=== PATIENT | male | born 1935 | race Asian ===

== ENCOUNTER 2024-06-01 08:20 | Emergency (ER) | payer MEDICARE, MEDICAID, SELFPAY ==
[2024-06-01] VITALS (7 sets, daily range): BP systolic 128–179; BP diastolic 77–86; PULSE 69–87; RESP 16–19; TEMP 36.5–37; O2SAT 98–100; BMI 24.7
--- NOTE | 2024-06-01 | XR_ITS ---
MRI abdomen, without contrast. MRCP Date and time of exam: June 01, 2024 1310 hours INDICATIONS: Upper abdominal pain this week, enlarged common bile duct on CT abdomen pelvis 03/15/2024 Technique: Multiple axial and coronal images of the abdomen have been obtained with the Siemens 1.5T MRI scanner. Images obtained included T1 weighted transverse images, T2-weighted transverse images, T2-weighted transverse images fat-suppressed, T2 weighted haste fat suppressed transverse images, T1 weighted images, in and out of phase images, T2-weighted coronal images, breath hold, T2 weighted haze coronal images as well as T2 weighted coronal thick slab images, MRCP. Findings: Mild intrahepatic biliary tract dilatation Absent gallbladder Abnormal enlargement common hepatic common bile duct up to 9 mm Abrupt truncation of the distal common bile duct Atrophic pancreas Spleen is not enlarged No ascites Aorta normal size IMPRESSION: Abnormal extra hepatic biliary tract dilatation, with abrupt termination of the distal common bile duct, differential would include malignant stricture the distal common bile duct, recommend ERCP follow-up
--- NOTE | 2024-06-01 08:26 | EKG_ITS ---
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
--- NOTE | 2024-06-01 08:37 | PD.EDRME ---
Rapid Medical Screening Exam RME Arrival date/time: 06/01/24 08:20 88-year-old male presents to the emergency department complains of upper abdominal pain Chief Complaint: Abdominal Pain Time Seen by Provider: 06/01/24 08:23 Vital signs: Vital Signs Temperature 98.6 F 06/01/24 08:22 Pulse Rate 87 06/01/24 08:22 Respiratory Rate 19 06/01/24 08:22 Blood Pressure 137/80 H 06/01/24 08:22 Pulse Oximetry (%) 98 06/01/24 08:22 Oxygen Delivery Method Room Air 06/01/24 08:22
[2024-06-01] MEDS: FAMOTIDINE 20 MG TABLET 40 MG PO (09:25)
[2024-06-01 09:31] LABS: Collection Type, Urine Clean Catch
[2024-06-01 09:34] LABS: Basophils % (Auto) 0 % (0-2.5); Eosinophils # (Auto) 0.3 Thou/mm3 (0.0-0.5); Eosinophils % (Auto) 4 % (0-10); Hematocrit 34.7 % (41.0-53.0); Hemoglobin 11.4 g/dL (13.5-16.0); Immature Granulocytes % (Auto) 0 % (0-0); Immature Granulocytes Auto 0.01 Thou/mm3 (0.00-0.00); Lymphocytes # (Auto) 2.1 Thou/mm3 (1.0-4.8); Lymphocytes % (Auto) 30 % (10-50); Mean Corpuscular HGB Conc 32.9 g/dl (31.0-37.0); Mean Corpuscular Volume 85 fL (80-100); Monocytes # (Auto) 0.5 Thou/mm3 (0.0-0.8); Monocytes % (Auto) 7 % (0-12); Neutrophils # (Auto) 4.1 Thou/mm3 (1.8-7.7); Neutrophils % (Auto) 58 % (37-80); Nucleated Red Blood Cell % 0 /100 WBC (0); Platelet Count 344 Thou/mm3 (140-440); RDW Standard Deviation 52.6 fL (35.1-43.9); Red Blood Count 4.07 Miln/mm3 (4.50-5.90)
[2024-06-01] MEDS: LIDOCAINE VISCOUS 2% 15 ML UDC PO (09:37)
[2024-06-01] MEDS: MG HYD/AL HYD/SIME (Maalox Reg) SUSP 30 ML UDC PO (09:37)
[2024-06-01 09:44] LABS: Bilirubin,Urine Negative (Negative); Blood,Urine Negative (Negative); Clarity,Urine Clear (Clear/Hazy); Color,Urine Lt-Yellow (Lt Yel-Yel); Culture Indicated,Urine Not Indicated; Glucose, Urine 4+ (Negative); Ketones,Urine Negative (Negative); Leukocyte Esterase,Urine Negative (Negative); Nitrite,Urine Negative (Negative); Protein,Urine Negative (Neg - Trace); RBC,Urine 1 /hpf (0-3); Specific Gravity,Urine 1.022 (1.001-1.035); Squamous Epithelial Cell,Urine < 1 /hpf (0-5); Urobilinogen,Urine Negative mg/dL (0.0-1.0); WBC,Urine < 1 /hpf (0-5)
[2024-06-01 10:07] LABS: Alanine Aminotransferase 10 U/L (10-49); Albumin, Serum 4.2 gm/dL (3.4-4.8); Albumin/Globulin Ratio 1.3 (1.2-2.2); Alkaline Phosphatase 103 U/L (46-116); Anion Gap 7 (7-16); Aspartate Amino Transferase 15 U/L (0-34); BUN/Creatinine Ratio 8 Ratio (12-20); Bilirubin,Total 0.4 mg/dL (0.3-1.2); Blood Urea Nitrogen 10 mg/dL (9-23); Calcium 9.8 mg/dL (8.3-10.6); Calcium (Corrected) 9.8 mg/dL (8.5-10.1); Carbon Dioxide 26.9 mMol/L (20.0-31.0); Chloride 105 mMol/L (98-107); Creatinine (Component) 1.3 mg/dL (0.6-1.3); Estimated Creatinine Clearance 28.8 mL/min (>60); Globulin 3.3 gm/dL (2.3-3.5); Glucose 169 mg/dL (74-106); Lipase 23 U/L (12-53); Osmolality,Calculated 280 (275-295); Sodium 139 mMol/L (136-145); Total Protein 7.5 gm/dL (5.7-8.2); Troponin I < 0.020 ng/mL (0.0-0.045); eGFR 54 See Note
--- NOTE | 2024-06-01 14:41 | EDNOTE_ITS ---
ED Abdominal Pain RME/HPI General Chief Complaint: Abdominal Pain Stated complaint: ABD PAIN, FEELS LIKE HEART IS BEATING WIERD PER PT Time seen by provider: 06/01/24 08:23 Arrival date/time: 06/01/24 08:20 Limitations: no limitations RME / HPI RME / HPI narrative: 06/01/24 08:20 88-year-old male presents to the emergency department complains of upper abdominal pain DR. BERNARD MAIN ED EVALUATION: 88 yaer old male with past medical history significant for hypertension and chronic epigastric pain who presents to the emergency department with recurrence of his epigastric pain. Pain is described as a hard, burning sensation that moves up his mid back, does not include his chest. pain has been present, intermittent for the last 1 to 2 years. It occurs in flares up at least once a week and often times is after eating. He has had several visits to the emergency department without a definitive diagnosis. He has had 2 EGDs where last EGD possibly in July of this year was suggestive of a bacterial infection of which he finished 7 days of antibiotics. After these antibiotics he did not have pain for about 2 to 3 weeks, and then recurred again. He denies nausea or vomiting. He denies diarrhea. He denies chest pain or shortness of breath. He feels like his causes him Related Data Home Medications ?Medication ?Instructions ?Recorded ?Confirmed fentanyl 75 mcg/hr transdermal 1 patch TOP Q72H PAIN #0 patches 11/19/15 11/30/22 patch (Duragesic) cetirizine 10 mg tablet 10 mg PO QDAY 03/29/22 11/30/22 dapagliflozin propanediol 5 mg 5 mg PO QDAY 03/29/22 11/30/22 tablet (Farxiga) acetaminophen 500 mg tablet 500 mg PO Q6HR PRN Pain 11/26/22 11/30/22 amlodipine 2.5 mg tablet 2.5 mg PO QAM 11/26/22 11/30/22 benzonatate 200 mg capsule 200 mg PO TID PRN Cough 11/26/22 11/30/22 omeprazole 40 mg capsule,delayed 40 mg PO QDAY 11/30/22 11/30/22 release Previous Rx's ?Medication ?Instructions ?Recorded sucralfate 100 mg/mL oral 5 ml PO QID #414 mL 03/15/24 suspension (Carafate) Allergies Allergy/AdvReac Type Severity Reaction Status Date / Time pregabalin [From Lyrica] Allergy Severe Hives Verified 06/01/24 08:21 shellfish derived Allergy Severe Hives Verified 06/01/24 08:21 Review of Systems Review of Systems Systems Reviewed: All systems reviewed, normal except as documented Narrative Review of Systems: GEN: No fever, no chills, no weight loss EYES: No discharge, no visual changes, no pain HEENT: No ear pain, no congestion, no sore throat PULM: No shortness of breath, no cough, no congestion CV: No chest pain, no dyspnea on exertion, no palpitations GI: No nausea, no vomiting, no diarrhea, + abdominal pain, no constipation : No frequency, no urgency and no dysuria MUSC/SKEL: No joint pain, no back pain SKIN: No rash PSYCH: No hallucinations, no depression HEME/LYMPH: No easy bleeding or bruising tendencies NEURO: No weakness, no headache Past Medical History Past Medical History CARDIAC: Positive Hypertension GASTROINTESTINAL: Positive Gastrointestinal Disorders, Gall Bladder Disease and Gastroesophageal Reflux Disease MUSCULOSKELETAL: Positive Musculoskeletal Disorders and Arthritis ENT: Positive Cataracts ENDOCRINE: Positive Endocrine Disorders and Diabetes Mellitus Type 2 Social History SMOKING STATUS: Never smoker SUBSTANCE USE: does not use ED Exam General Limitations: Present no limitations General appearance: Present alert and other (Moderate distress, nontoxic) Head Head exam: Present atraumatic, normocephalic and normal inspection Eye Eye exam: Present normal appearance, PERRL and EOMI ENT ENT exam: Present normal exam, normal oropharynx and mucous membranes moist Neck Neck exam: Present normal inspection, full ROM and trachea midline Chest Chest inspection: Present normal inspection and symmetric chest wall rise Respiratory Respiratory exam: Present normal lung sounds bilaterally Cardiovascular Cardiovascular exam: Present regular rate, normal rhythm and normal heart sounds Abdominal Exam Abdominal exam: Present soft and normal bowel sounds Abdominal tenderness: Present epigastrium (Moderate to severe, no rebound or guarding) Extremities Exam Extremities exam: Present normal inspection and full ROM Back Exam Back exam: Present normal inspection and full ROM Neurological Exam Neurological exam: Present alert, oriented X3 and CN II-XII intact Psychiatric Psychiatric exam: Present normal affect and normal mood Skin Skin exam: Present warm, dry, intact and normal color Course Quality Measures none Orders Category Date Time Status EKG (ED ONLY) *Do not use* NOW Care 06/01/24 08:26 Completed MRI Screening NOW Care 06/01/24 09:28 Completed Referral - Mathematical Physicist Stat Cons 06/01/24 15:12 Active EKG (ED Only) Stat Exams 06/01/24 08:26 Draft MR MRCP Stat Exams 06/01/24 Completed CBC Stat Lab 06/01/24 09:26 Completed Comprehensive Metabolic Panel Stat Lab 06/01/24 09:26 Completed Lipase Stat Lab 06/01/24 09:26 Completed Troponin I Stat Lab 06/01/24 09:26 Completed UA, C/S IF [Urinalysis, C/S if Indicated] Stat Lab 06/01/24 08:50 Completed Acetaminophen Tab [Tylenol Tab] Med 06/01/24 14:57 Discontinued 650 mg PO X1 ONE Famotidine [Pepcid] Med 06/01/24 08:37 Discontinued 40 mg PO X1 ONE Lidocaine 2% Viscous [Xylocaine 2% Viscous] Med 06/01/24 09:28 Discontinued 15 ml PO X1 ONE mg Hyd/Al Hyd/Rashad Susp [Maalox Susp] Med 06/01/24 09:28 Discontinued 30 ml PO X1 ONE Reevaluation(s) Reevaluation #1: I have reviewed the findings at length with the patient translated through his daughter with the urging of his daughter as well. We reviewed the findings, the treatment plan diagnostic plan, including biopsy. He would like to discuss with his primary provider, Leanne brumfield, and understands the risks, including continued pain and . he is assigning out AMA. This patient is choosing to leave against medical advice. I have personally explained to the patient that choosing to do so may result in permanent bodily harm or . I discussed a great length that without further evaluation and monitoring there may be unforeseen circumstances and deterioration causing permanent bodily harm or as a result of their choice. The patient is alert, oriented and competent at this time. The patient states that they are aware of the serious risks as explained, but they continue to wish to leave against medical advice. In light of their decision to leave AMA, follow-up has been arranged and they are aware of the importance of following up as instructed. They have been advised that they should return to the ED immediately if they change their mind at any time, or if their condition begins to change or worsen. Time: 16:25 Vital Signs Vital signs: Vital Signs Temperature 98.6 F 06/01/24 08:22 Pulse Rate 87 06/01/24 08:22 Respiratory Rate 19 06/01/24 08:22 Blood Pressure 137/80 H 06/01/24 08:22 Pulse Oximetry (%) 98 06/01/24 08:22 Oxygen Delivery Method Room Air 06/01/24 08:22 SpO2 98% on room air, patient is not hypoxic Abdominal Pain MDM MDM Narrative [facility] Narrative:: Mr. Starkey is a quite uncomfortable appearing gentleman with recurrence of his chronic epigastric pain. He has been to the emergency department several times for this complaints, visits with his primary care physician, and EGDs twice without a definitive diagnosis. Exam is without significant clinical toxicity but is notable for discomfort and moderate to severe pain with palpation of his epigastrium. Due to the chronic recurrent nature and several visits to emergency department I did review the electronic medical record to guide workup during this emergency department. Laboratory testing including lipase was sent via the RME process which was overall unremarkable and significant for a normal lipase and normal liver enzymes. He is status post laparoscopic cholecystectomy. He has had approximately 5 abdominal CTs in the last 2 years where he has been having this pain. Last 2 abdominal CTs were December and March of this year which is essentially unremarkable for acute pathology but does have an interesting curiosity, his common bile duct is notable on both of them therefore possibly dilated. On the last CT in March his CBD on CT is measured at 10 cm. Although the CBD can be enlarged in the later decades of life, this is now beyond what would be expected for his age. However it is important to note that the CT is not precise in quantifying the CBD. Through both of these encounters where the CBD was possibly enlarged liver enzymes and lipase were normal on those visits as well. Overall the trend appears to be gradually growing CBD diameter of unknown reason, and on my exam he has significant epigastric pain which could connect to pathology in this area. At this point I felt to be prudent hop back onto the [id number] of ED CT scans and instead to advance his workup to better and more precisely address the potential of a dilated CBD. Additionally he has been addressing this with his primary care doctor and several specialist without definitive diagnosis. Therefore MRCP was ordered here in the emergency department which did come back positive for a very concerning stricture at his CBD and dilation of the ducts upstream. Most concerning would be a malignancy or a cancer and next steps would be ERCP for visualization and possible biopsy. I reviewed all the results from today and previous CTs with the patient and his daughter as the basis for next steps in diagnostics and possible treatment. This would include transfer to a higher level of care with the capacity for ERCP. however despite outlining this process, explaining things to his daughter for clear translation, he transparently admits that he is appreciative and does want a better explanation as he has been suffering from this for the last 1 to 2 years, however now with that there is an identifiable issue for further testing, this is creating anxiety where he would prefer to discuss the results with his primary care provider, Leanne hollingsworth before making any decisions on the ERCP. I did outline the ERCP in relation to his EGDs in the past however he still admits that he is quite fearful, he understands why should be done, but would like to sign out AMA so we can discuss this with his primary care provider. I have advised him that if he changes his mind he can return to the emergency department that we can initiate transfer at that time I have also explained this to his daughter. Patient otherwise has stable vital signs, is clinically nontoxic, he does continue to have epigastric pain, however is signing out AMA. I, Larisa Morgan, am scribing for and in the presence of Dr. Bernard. Patient data External records reviewed:: [facility] previous records (Reviewed last ED visit dated 03/15/24, discharged with the following: Epigastric pain.) Clinical information provided by:: patient and family (daughter serving as spanish translator) Social determinants that could affect healthcare access:: none Patient has the following chronic illnesses:: hypertension and GERD How is presenting disease/condition affected by chronic disease/condition?: exacerbated by Evaluation data The following diagnostics were reviewed and interpreted by me:: lab results, radiology exam(s) and EKG tracing(s) Lab and/or radiology exams considered but not ordered:: none Interpretation Summary: Procedure(s): MR MRCP Accession Number(s): [id number] cc: Fred Bernard MD; Gwyn Lugo MD; Leanne Serna PA-C~ MRI abdomen, without contrast. MRCP Date and time of exam: June 01, 2024 1310 hours INDICATIONS: Upper abdominal pain this week, enlarged common bile duct on CT abdomen pelvis 03/15/2024 Technique: Multiple axial and coronal images of the abdomen have been obtained with the Siemens 1.5T MRI scanner. Images obtained included T1 weighted transverse images, T2-weighted transverse images, T2-weighted transverse images fat-suppressed, T2 weighted haste fat suppressed transverse images, T1 weighted images, in and out of phase images, T2-weighted coronal images, breath hold, T2 weighted haze coronal images as well as T2 weighted coronal thick slab images, MRCP. Findings: Mild intrahepatic biliary tract dilatation Absent gallbladder Abnormal enlargement common hepatic common bile duct up to 9 mm Abrupt truncation of the distal common bile duct Atrophic pancreas Spleen is not enlarged No ascites Aorta normal size IMPRESSION: Abnormal extra hepatic biliary tract dilatation, with abrupt termination of the distal common bile duct, differential would include malignant stricture the distal common bile duct, recommend ERCP follow-up Dictated By: Gwyn Lugo MD Medications / Prescriptions Medications or Prescriptions considered but not ordered:: none Medication administrations:: Medication Administration History Discontinued Medications Acetaminophen (Acetaminophen 325 Mg Tablet) 650 mg PO X1 ONE Stop: 06/01/24 14:58 Last Admin: 06/01/24 15:23 Dose: 650 mg Documented By: MARCIANO Al Hydrox/Mg Hydrox/Simethicone (Mg Hyd/Al Hyd/Rashad (Maalox Reg) Susp 30 Ml Udc) 30 ml PO X1 ONE Stop: 06/01/24 09:29 Last Admin: 06/01/24 09:37 Dose: 30 ml Documented By: MARCIANO Famotidine (Famotidine 20 Mg Tablet) 40 mg PO X1 ONE Stop: 06/01/24 08:38 Last Admin: 06/01/24 09:25 Dose: 40 mg Documented By: MARCIANO Lidocaine HCl (Lidocaine Viscous 2% 15 Ml Udc) 15 ml PO X1 ONE Stop: 06/01/24 09:29 Last Admin: 06/01/24 09:37 Dose: 15 ml Documented By: MACRIANO see above Consultations Consultation(s) initiated? (list below): No Diagnosis Differential diagnosis abdominal pain: abdominal pain, acute appendicitis, gastroenteritis and pancreatitis Most likely diagnosis given after review of the tests above:: As noted below. Admission Indicated Admission indicated?: not indicated Explain why admission is indicated or not indicated:: Patient is choosing to leave AMA. Admission Request Was there a request for admission?: No Disposition Plan Disposition Plan: other (specify) (AMA) Discharge Plan Plan Patient Disposition: Left Against Medical Advice Prescriptions/Referrals Prescriptions/Med Rec: No Action fentanyl [Duragesic] 1 PATCH patch 72 hour 1 patch TOP Q72H Qty: 0 cetirizine 10 mg Tablet 10 mg PO QDAY Farxiga 5 mg Tablet 5 mg PO QDAY benzonatate 200 mg capsule 200 mg PO TID MDD 3 PRN (Reason: Cough) Patient Comments: TAKE 1 CAPSULE BY MOUTH THREE TIMES A DAY NEEDED FOR COUGH amlodipine 2.5 mg tablet 2.5 mg PO QAM Patient Comments: TAKE 1 TABLET BY MOUTH EVERY DAY FOR BLOOD PRESSURE acetaminophen 500 mg tablet 500 mg PO Q6HR PRN (Reason: Pain) omeprazole 40 mg capsule,delayed release(DR/EC) 40 mg PO QDAY Patient Comments: TAKE 1 CAPSULE BY MOUTH EVERY DAY 30 MIN BEFORE MEALS FOR STOMACH sucralfate [Carafate] 100 mg/mL suspension 5 ml PO QID Qty: 414 0RF Rx Instructions: swish in mouth and swallow; use after food/drink Referrals: Leanne Serna PA-C [Primary Care Provider] - In 1 week Problem List Clinical Impression: Common bile duct (CBD) obstruction, Common bile duct (CBD) stricture Patient/Caregiver Discharge Instructions Education Materials: Abdominal Pain Additional Instructions: You have a stricture at the level of your common bile duct is concerning for possible cancer. Please follow-up with your primary care doctor for referral for special procedure called an ERCP. if you change your mind you can return to the emergency department and we can arrange for the transfer again. Print Language: Sekou
[2024-06-01] MEDS: ACETAMINOPHEN 325 MG TABLET 650 MG PO (15:23)
--- NOTE | 2024-06-01 15:53 | PC.CM ---
Addendum entered by Debbie Chung RN 06/01/24 16:19: I received a call from Dr. Rivera stating patient was going to leave AMA. Transfer request has been canceled. Original Note: [id number] I received a referral to transfer patient for ERCP. I will send a referal to [facility].
--- NOTE | 2024-06-01 16:39 | PC.NURSE ---
pt has been sleeping most of the time here. daughter at [facility].
--- NOTE | 2024-06-01 16:40 | PC.NURSE ---
PT decided that he did not want to be addmited/transfered . pt wants to see PCP tomorrow. ED MD and myself, explained to pt and family, that leaving now could lead to injury and or . Dispite this information, pt still chooses to leave AMA.
== END 2024-06-01 16:40 | disposition left against medical advice (07) ==
PROVIDERS: Nurse Practitioner Primary Care; Emergency Provider Emergency Medicine; PCP Physician Assistant
DX: K83.1 Obstruction of bile duct (principal); I45.10 Unspecified right bundle-branch block; Z53.29 Procedure and treatment not carried out because of patient's decision for other reasons; I10 Essential (primary) hypertension
CPT/HCPCS: 36415; 80053; 81001; 83690; 84484; 85025; 93005; 99284; J3490; S8037; 74181; A9270

== ENCOUNTER 2024-08-10 10:36 | Emergency (ER) | payer MEDICARE, MEDICAID, SELFPAY ==
[2024-08-10 11:03] VITALS: BP 120/68; PULSE 79; RESP 18; TEMP 36.6; O2SAT 97; BMI 24.1
--- NOTE | 2024-08-10 11:15 | PD.EDRME ---
Rapid Medical Screening Exam RME Arrival date/time: 08/10/24 10:36 88-year-old male presents emergency department today complaint of abdominal pain patient was seen in May had abnormality on MRI at that time Chief Complaint: Abdominal Pain Vital signs: Vital Signs Temperature 97.8 F 08/10/24 11:03 Pulse Rate 79 08/10/24 11:03 Respiratory Rate 18 08/10/24 11:03 Blood Pressure 120/68 08/10/24 11:03 Pulse Oximetry (%) 97 08/10/24 11:03 Oxygen Delivery Method Room Air 08/10/24 11:03
[2024-08-10 11:43] LABS: Collection Type, Urine Clean Catch
[2024-08-10 11:53] LABS: Basophils # (Auto) 0.1 Thou/mm3 (0.0-0.2); Basophils % (Auto) 1 % (0-2.5); Eosinophils # (Auto) 0.4 Thou/mm3 (0.0-0.5); Eosinophils % (Auto) 5 % (0-10); Hematocrit 40.5 % (41.0-53.0); Hemoglobin 13.2 g/dL (13.5-16.0); Immature Granulocytes % (Auto) 0 % (0-0); Immature Granulocytes Auto 0.01 Thou/mm3 (0.00-0.00); Lymphocytes # (Auto) 2.4 Thou/mm3 (1.0-4.8); Lymphocytes % (Auto) 34 % (10-50); Mean Corpuscular HGB Conc 32.6 g/dl (31.0-37.0); Mean Corpuscular Hemoglobin 28.4 pg (25.0-35.0); Mean Corpuscular Volume 87 fL (80-100); Monocytes # (Auto) 0.4 Thou/mm3 (0.0-0.8); Monocytes % (Auto) 6 % (0-12); Neutrophils # (Auto) 3.8 Thou/mm3 (1.8-7.7); Neutrophils % (Auto) 54 % (37-80); Nucleated Red Blood Cell % 0 /100 WBC (0); Platelet Count 298 Thou/mm3 (140-440); RDW Standard Deviation 52.9 fL (35.1-43.9); Red Blood Count 4.64 Miln/mm3 (4.50-5.90); White Blood Count 7.1 Thou/mm3 (3.8-10.6)
[2024-08-10 11:58] LABS: Bilirubin,Urine Negative (Negative); Blood,Urine Negative (Negative); Clarity,Urine Clear (Clear/Hazy); Color,Urine Lt-Yellow (Lt Yel-Yel); Culture Indicated,Urine Not Indicated; Glucose, Urine 4+ (Negative); Ketones,Urine Trace (Negative); Leukocyte Esterase,Urine Negative (Negative); Nitrite,Urine Negative (Negative); PH,Urine 6.5 (5.0-7.0); Protein,Urine Negative (Neg - Trace); RBC,Urine 1 /hpf (0-3); Specific Gravity,Urine 1.022 (1.001-1.035); Squamous Epithelial Cell,Urine < 1 /hpf (0-5); Urobilinogen,Urine Negative mg/dL (0.0-1.0); WBC,Urine < 1 /hpf (0-5)
[2024-08-10 12:10] LABS: Alanine Aminotransferase 11 U/L (10-49); Albumin, Serum 4.2 gm/dL (3.4-4.8); Albumin/Globulin Ratio 1.1 (1.2-2.2); Alkaline Phosphatase 103 U/L (46-116); Anion Gap 8 (7-16); Aspartate Amino Transferase 30 U/L (0-34); BUN/Creatinine Ratio 8 Ratio (12-20); Bilirubin,Total 0.4 mg/dL (0.3-1.2); Blood Urea Nitrogen 10 mg/dL (9-23); Calcium 10.2 mg/dL (8.3-10.6); Calcium (Corrected) 10.2 mg/dL (8.5-10.1); Carbon Dioxide 26.9 mMol/L (20.0-31.0); Chloride 104 mMol/L (98-107); Creatinine (Component) 1.3 mg/dL (0.6-1.3); Estimated Creatinine Clearance 30.2 mL/min (>60); Glucose 144 mg/dL (74-106); Lipase 21 U/L (12-53); Osmolality,Calculated 279 (275-295); Potassium 5.3 mMol/L (3.4-5.1); Sodium 139 mMol/L (136-145); Total Protein 8.2 gm/dL (5.7-8.2); eGFR 54 See Note
--- NOTE | 2024-08-10 12:49 | EDNOTE_ITS ---
ED General RME/HPI General Chief complaint: Abdominal Pain Stated complaint: ABD PAIN, NAUSEA Time Seen by Provider: 08/10/24 11:58 Arrival date/time: 08/10/24 10:36 CC: Chronic abdominal pain HPI ongoing for years per the daughter, the patient was seen here in May 2024, had an MRCP which recommended an ERCP secondary to an abrupt termination/stricture of the CBD. Patient at that time refused to go for an ERCP. Daughter at bedside said he is continue to have chronic abdominal pain since then. The patient was seen by Dr. Major today, and came to the ER because of the recurrent pain. The patient is awake with the persistent pain. RME / HPI RME / HPI narrative: 08/10/24 10:36 88-year-old male presents emergency department today complaint of abdominal pain patient was seen in May had abnormality on MRI at that time Related Data Home Medications ?Medication ?Instructions ?Recorded ?Confirmed fentanyl 75 mcg/hr transdermal 1 patch TOP Q72H PAIN #0 patches 11/19/15 11/30/22 patch (Duragesic) cetirizine 10 mg tablet 10 mg PO QDAY 03/29/22 11/30/22 dapagliflozin propanediol 5 mg 5 mg PO QDAY 03/29/22 11/30/22 tablet (Farxiga) acetaminophen 500 mg tablet 500 mg PO Q6HR PRN Pain 11/26/22 11/30/22 amlodipine 2.5 mg tablet 2.5 mg PO QAM 11/26/22 11/30/22 benzonatate 200 mg capsule 200 mg PO TID PRN Cough 11/26/22 11/30/22 omeprazole 40 mg capsule,delayed 40 mg PO QDAY 11/30/22 11/30/22 release Previous Rx's ?Medication ?Instructions ?Recorded sucralfate 100 mg/mL oral 5 ml PO QID #414 mL 03/15/24 suspension (Carafate) acetaminophen 500 mg tablet 500 mg PO Q6H PRN fever #20 tabs 08/10/24 (Acetaminophen Pain Relief) Allergies Allergy/AdvReac Type Severity Reaction Status Date / Time pregabalin [From Lyrica] Allergy Severe Hives Verified 06/01/24 08:21 shellfish derived Allergy Severe Hives Verified 06/01/24 08:21 Review of Systems Review of Systems Narrative Review of Systems: GEN: No fever, no chills, no weight loss EYES: No discharge, no visual changes, no pain HEENT: No ear pain, no congestion, no sore throat PULM: No shortness of breath, no cough, no congestion CV: No chest pain, no dyspnea on exertion, no palpitations GI: No nausea, no vomiting, no diarrhea, + pain, no constipation : No frequency, no urgency, no dysuria MUSC/SKEL: No joint pain, no back pain SKIN: No rash PSYCH: No hallucinations, no depression HEME/LYMPH: No easy bleeding or bruising tendencies NEURO: No weakness, no headache Past Medical History Past Medical History NEUROLOGIC: Negative Neurological Disorders or Seizures CARDIAC: Positive Hypertension; Negative Cardiac Disorders or Congestive Heart Failure RESPIRATORY: Negative Chronic Obstructive Pulmonary Disease (COPD) or Asthma GASTROINTESTINAL: Positive Gastrointestinal Disorders, Gall Bladder Disease and Gastroesophageal Reflux Disease GENITOURINARY: Negative Genitourinary Disorders or Renal Disease REPRODUCTIVE: Negative Fibroids MUSCULOSKELETAL: Positive Musculoskeletal Disorders and Arthritis ENT: Positive Cataracts ENDOCRINE: Positive Endocrine Disorders and Diabetes Mellitus Type 2; Negative Diabetes Mellitus Type 1 HEMATOLOGIC: Negative Blood Disorders or Sickle Cell Disease OTHER HISTORY: Negative Autoimmune Disease, Blood Transfusions, Blood Transfusion Reaction, Anesthesia Reactions, Clostridium Difficile or Cancer Family History FAMILY HISTORY: Negative Family Respiratory Disorders, Family Cardiac Disorders or Family Gastrointestinal Problems Social History SMOKING STATUS: Never smoker SUBSTANCE USE: does not use ED Exam Narrative Physical exam: [General: Thin, cachectic, in mild discomfort but not in any acute distress Head normocephalic HEENT: Within acceptable limits Neck is supple nontender Chest equal chest rise nontender to palpation Respiratory: Clear to auscultation no wheezes crackles or rubs CV: Rate rhythm is regular no murmurs rubs or clicks Abdomen soft flat with periumbilical or epigastric pain. Not reproducible with palpation. Back: No CVA tenderness no spinous process tenderness from cervical spine thoracic and lumbar spine Skin: Intact no petechiae rash induration ulceration or crepitus Extremities: Moving all extremity against resistance cap refill less than 2 seconds neurosensory intact Neuro: Awake alert oriented x2, person and place, Glascow coma 15 no focal deficits] Course Quality Measures none Orders Category Date Time Status CBC Stat Lab 08/10/24 11:19 Completed Comprehensive Metabolic Panel Stat Lab 08/10/24 11:19 Completed Lipase Stat Lab 08/10/24 11:19 Completed UA, C/S IF [Urinalysis, C/S if Indicated] Stat Lab 08/10/24 11:34 Completed oxyCODONE/APAP 5/325 [Percocet 5/325] Med 08/10/24 12:45 Discontinued 1 tab PO X1 ONE Vital Signs Vital signs: Vital Signs Temperature 97.8 F 08/10/24 11:03 Pulse Rate 79 08/10/24 11:03 Respiratory Rate 18 08/10/24 11:03 Blood Pressure 120/68 08/10/24 11:03 Pulse Oximetry (%) 97 08/10/24 11:03 Oxygen Delivery Method Room Air 08/10/24 11:03 [facility] Patient data External records reviewed:: [facility] previous records Clinical information provided by:: patient and family Social determinants that could affect healthcare access:: none Patient has the following chronic illnesses:: Chronic abdominal pain How is presenting disease/condition affected by chronic disease/condition?: e xacerbated by Evaluation data The following diagnostics were reviewed and interpreted by me:: lab results and radiology exam(s) Lab and/or radiology exams considered but not ordered:: CBC shows no leukocytosis there is a stable anemia no thrombocytopenia CMP shows sodium 139 potassium 5.3 chloride of 104 CO2 of 26.9 BUN of 10, creatinine 1.3 glucose of 144 T. bili of 0.4 AST 30 ALT of 11 alk phos of 103 these are unchanged from the last results of May 2024. Interpretation Summary: Laboratory results are unremarkable, ERCP from May show abrupt termination of the hepatobiliary tract. At this time the patient is afebrile nontoxic- appearing not in any acute distress the patient can follow-up outpatient with Dr. Major for consideration of an outpatient ERCP. Family is in agreement with this plan. Medications Medications considered but not ordered:: None Medication administrations:: Medication Administration History Discontinued Medications Oxycodone/Acetaminophen (Oxycodone/Apap 5/325 Tablet) 1 tab PO X1 ONE Stop: 08/10/24 12:46 Last Admin: 08/10/24 13:24 Dose: 1 tab Documented By: MP None Consultations Consultation(s) initiated? (list below): No Diagnosis Differential Diagnosis ED Complaint MDM: Abdominal pain, choledocholithiasis cholelithiasis cholecystitis Most likely diagnosis given after review of the tests above:: Abdominal pain Admission Indicated Admission indicated?: not indicated Explain why admission is indicated or not indicated:: Stable for outpatient follow-up Admission Request Was there a request for admission?: No Disposition Plan Disposition Plan: Discharge Discharge Attestation Discharge Attestation: The patient and all family members were given an opportunity to ask questions and understood the discharge instructions. Discharge instructions specifically effects, indications for sooner follow up or return to the emergency department, and the expected course of current diagnosis. Patient condition: Stable Medical Decision Making Differential Diagnosis Differential Diagnosis: Abdominal pain, choledocholithiasis cholelithiasis cholecystitis Lab Data 08/10/24 11:19 08/10/24 11:19 Labs: Lab Results 08/10/24 08/10/24 Range/Units 11:19 11:34 WBC 7.1 (3.8-10.6) Thou/mm3 RBC 4.64 (4.50-5.90) Miln/mm3 Hgb 13.2 L (13.5-16.0) g/dL Hct 40.5 L (41.0-53.0) % MCV 87 (80-100) fL MCH 28.4 (25.0-35.0) pg MCHC 32.6 (31.0-37.0) g/dl RDW Std Deviation 52.9 H (35.1-43.9) fL Plt Count 298 (140-440) Thou/mm3 Neut % (Auto) 54 (37-80) % Lymph % (Auto) 34 (10-50) % [place] % (Auto) 6 (0-12) % Eos % (Auto) 5 (0-10) % Baso % (Auto) 1 (0-2.5) % Neut # (Auto) 3.8 (1.8-7.7) Thou/mm3 Lymph # (Auto) 2.4 (1.0-4.8) Thou/mm3 [place] # (Auto) 0.4 (0.0-0.8) Thou/mm3 Eos # (Auto) 0.4 (0.0-0.5) Thou/mm3 Baso # (Auto) 0.1 (0.0-0.2) Thou/mm3 Immature Gran # (Auto) 0.01 H (0.00-0.00) Thou/mm3 Absolute Nucleated RBC 0.00 (0.00-0.00) Thou/mm3 Immature Gran % 0 (0-0) % Nucleated RBC % 0 (0) /100 WBC Sodium 139 (136-145) mMol/L Potassium 5.3 H (3.4-5.1) mMol/L Chloride 104 (98-107) mMol/L Carbon Dioxide 26.9 (20.0-31.0) mMol/L Anion Gap 8 (7-16) BUN 10 (9-23) mg/dL Creatinine 1.3 (0.6-1.3) mg/dL Estim Creat Clear Calc 30.2 L (>60) mL/min eGFR 54 L (60 - ) See Note BUN/Creatinine Ratio 8 L (12-20) Ratio Glucose 144 H (74-106) mg/dL Calculated Osmolality 279 (275-295) Calcium 10.2 (8.3-10.6) mg/dL Corrected Calcium 10.2 H (8.5-10.1) mg/dL Total Bilirubin 0.4 (0.3-1.2) mg/dL AST 30 (0-34) U/L ALT 11 (10-49) U/L Alkaline Phosphatase 103 (46-116) U/L Total Protein 8.2 (5.7-8.2) gm/dL Albumin 4.2 (3.4-4.8) gm/dL Globulin 4.0 H (2.3-3.5) gm/dL Albumin/Globulin Ratio 1.1 L (1.2-2.2) Lipase 21 (12-53) U/L Ur Collection Type Clean Catch Urine Color Lt-Yellow (Lt Yel-Yel) Urine Clarity Clear (Clear/Hazy) Urine pH 6.5 (5.0-7.0) Ur Specific [place]anna 1.022 (1.001-1.035) Urine Protein Negative (Neg - Trace) Urine Glucose (UA) 4+ A (Negative) Urine Ketones Trace (Negative) Urine Blood Negative (Negative) Urine Nitrite Negative (Negative) Urine Bilirubin Negative (Negative) Urine Urobilinogen (Auto) Negative (0.0-1.0) mg/dL Ur Leukocyte Esterase Negative (Negative) Urine RBC 1 (0-3) /hpf Urine WBC < 1 (0-5) /hpf Ur Squamous Epith Cells < 1 (0-5) /hpf Urine Bacteria None (None) Ur Culture Indicated? Not Indicated Discharge Plan Plan Patient Disposition: HOME (Self Care) Patient condition on transfer: Stable Prescriptions/Referrals Prescriptions/Med Rec: New acetaminophen [Acetaminophen Pain Relief] 500 mg tablet 500 mg PO Q6H PRN (Reason: fever) Qty: 20 0RF No Action fentanyl [Duragesic] 1 PATCH patch 72 hour 1 patch TOP Q72H Qty: 0 cetirizine 10 mg Tablet 10 mg PO QDAY Farxiga 5 mg Tablet 5 mg PO QDAY benzonatate 200 mg capsule 200 mg PO TID MDD 3 PRN (Reason: Cough) Patient Comments: TAKE 1 CAPSULE BY MOUTH THREE TIMES A DAY NEEDED FOR COUGH amlodipine 2.5 mg tablet 2.5 mg PO QAM Patient Comments: TAKE 1 TABLET BY MOUTH EVERY DAY FOR BLOOD PRESSURE acetaminophen 500 mg tablet 500 mg PO Q6HR PRN (Reason: Pain) omeprazole 40 mg capsule,delayed release(DR/EC) 40 mg PO QDAY Patient Comments: TAKE 1 CAPSULE BY MOUTH EVERY DAY 30 MIN BEFORE MEALS FOR STOMACH sucralfate [Carafate] 100 mg/mL suspension 5 ml PO QID Qty: 414 0RF Rx Instructions: swish in mouth and swallow; use after food/drink Referrals: Leanne Serna PA-C [Primary Care Provider] - In 1 week Problem List Clinical Impression: Abdominal pain Patient/Caregiver Discharge Instructions Other Activity Instructions:: Follow-up with Dr. Major as stated. If is a worsening of symptoms return the emergency room for reevaluation. Education Materials: Abdominal Pain Print Language: Taiwanese Stand Alone Forms: Leslee Award Info., Patient Portal Info Letter, Work/School Release PA/DATABASE ADMINISTRATION PROJECT MANAGER Supervising Physician PA/DATABASE ADMINISTRATION PROJECT MANAGER Supervising Physician: Paul Centeno ENP
[2024-08-10] MEDS: oxyCODONE/APAP 5/325 TABLET 1 TAB PO (13:24)
[2024-08-10 13:40] VITALS: BP 164/91; PULSE 88; RESP 18; TEMP 36.5; O2SAT 97
[2024-08-10 14:55] VITALS: BMI 21.2
== END 2024-08-10 14:59 | disposition home or self-care (01) ==
PROVIDERS: Nurse Practitioner Primary Care; Emergency Provider Emergency Medicine; PCP Physician Assistant
DX: R10.9 Unspecified abdominal pain (principal); G89.29 Other chronic pain
CPT/HCPCS: 36415; 80053; 81001; 83690; 85025; 99283; A9270

== ENCOUNTER 2024-09-15 12:30 | Emergency (ER) | payer MEDICARE, MEDICAID, SELFPAY ==
[2024-09-15 12:42] VITALS: BP 142/76; PULSE 89; RESP 19; TEMP 36.5; O2SAT 97; BMI 25.0
--- NOTE | 2024-09-15 12:43 | EKG_ITS ---
[facility] Test Date: 2024-09-15 Pat Name: KENDRA CAMPOS Department: Room: - Gender: Male Cob Sawyer: : 1935 Requested By: Damien Winkler Order Number: [id number] Reading MD: Damien Winkler Measurements Intervals [place] Rate: 92 P: 34 NC: 221 QRS: 12 QRSD: 140 T: 23 QT: 393 QTc: 488 Interpretive Statements SINUS RHYTHM WITH FIRST DEGREE AV BLOCK RIGHT BUNDLE BRANCH BLOCK [120+ ms QRS DURATION, UPRIGHT V1, 40+ ms S IN I/aVL/V4/V5/V6] Compared to ECG 06/01/2024 08:38:53 First degree AV block now present /store/S0/[id number].pdf
--- NOTE | 2024-09-15 12:43 | PD.EDRME ---
Rapid Medical Screening Exam RME Arrival date/time: 09/15/24 12:30 88-year-old male with a history of hypertension, type 2 diabetes, presents to the emergency room with a chief complaint of 10 out of 10 abdominal diffuse pain, vomiting x 1 day I have greeted and performed a focused initial assessment of this patient. A comprehensive ED assessment and evaluation of the patient, analysis of all test results, and completion of the medical decision making process will be conducted by additional ED providers. Chief Complaint: Nausea/Vomiting/Diarrhea Vital signs: Vital Signs Temperature 97.7 F 09/15/24 12:42 Pulse Rate 89 09/15/24 12:42 Respiratory Rate 19 09/15/24 12:42 Blood Pressure 142/76 H 09/15/24 12:42 Pulse Oximetry (%) 97 09/15/24 12:42 Oxygen Delivery Method Room Air 09/15/24 12:42 Vital signs reviewed by provider: Yes
--- NOTE | 2024-09-15 13:14 | PD.EDADULT ---
ED General RME/HPI General Chief complaint: Nausea/Vomiting/Diarrhea Stated complaint: VOMITING, DIZZY, NOT EATEN X 2 DAYS Time Seen by Provider: 09/15/24 13:06 Arrival date/time: 09/15/24 12:30 RME / HPI RME / HPI narrative: 09/15/24 12:30 88-year-old male with a history of hypertension, type 2 diabetes, presents to the emergency room with a chief complaint of 10 out of 10 abdominal diffuse pain, vomiting x 1 day I have greeted and performed a focused initial assessment of this patient. A comprehensive ED assessment and evaluation of the patient, analysis of all test results, and completion of the medical decision making process will be conducted by additional ED providers. DR. DON MAIN ED EVALUATION: This section includes all my notes and documentations, including HPI, PE, and ED course.? Tre Don MD HPI: 88 year old male with past medical history significant for diabetes, hypertension, and left hip fracture presents to the Emergency Department accompanied by his daughter with complaints of dizziness, nausea, and vomiting. Patient described the dizziness like the room is spinning. Patient lives with his and daughter. Per daughter, he uses a wheelchair because he had a left hip fracture. Denies fevers, chills, or a cough. No other complaints reported. ROS: All negative except as documented in HPI. Physical Exam: General:? Alert and oriented.? Appearance of malaise noted. Eyes:? Conjunctivae and lids clear. PERRL. EOMI. ENT:? No nasal congestion.? Pharynx normal. TM normal bilaterally. Neck:? Supple. Heart:? RRR. Lungs:? No respiratory distress.? Good air movement.? No rhonchi, wheezing, rales.? Abdomen:? Soft with mild epigastric tenderness. Legs:? No clubbing, cyanosis, edema. Skin:? Warm and dry.? Neuro:? Alert and oriented X 3.? Cranial nerves II through XII grossly normal. No peripheral motor deficits. I reviewed all diagnostic test results. My interpretation of the EKG is?Sinus rhythm (92 bpm) with first-degree AV block and right BBB and nonspecific ST-T changes. My review of the gallbladder US report is no acute findings. My review of the head and chest/abdomen/pelvis CT reports is no acute findings. Blood tests and urine tests unremarkable. At this point, diagnoses include Vertigo, GERD, chronic abdominal pain. Treatment here included Famotidine, IV fluids, zofran, Meclizine, Pantoprazole Sodium, Scopolamine patch. Significant improvement noted. Recommended outpatient care. Based on my best medical judgment, made decision no further evaluation or treatment indicated at this time.? Patient (and family) understands and agrees to the discharge instructions customized and printed, see below. Discharge instructions from Dr. Don: ? After extensive evaluation, there is no life-threatening condition.? Such as stroke or brain tumor or heart attack. -- Your severe symptoms are due to vertigo.? This is an inner ear problem that makes you feel like you are drunk or seasick.? See attached handout. -- Use scopolamine patch and/or meclizine for your severe symptoms. -- And Zofran for nausea/vomiting.? And increase oral fluid to prevent dehydration.? Maintain clear urine.? If dark or yellow, increase oral fluid. -- And do everything very slowly.? Including moving your head.? And when you sit up or stand up, wait a minute before you progress.? -- A factor of your chronic abdominal pain may be due to GERD (see attached handout), take omeprazole every morning and famotidine every night for a month. -- See your beater out leveling machine, Dr. Major, on 09/25/2024 as scheduled. --See your primary care provider on 09/16/2024 for recheck and further care. Ask to review all test results and official radiology reports, to make sure you receive all necessary follow-ups and monitoring. If needed, ask to help you get more care not available here in the ER.? Such as MRI imaging of your brain, physical therapy, table tilt test, and referrals to see specialists (such as neurologist and ENT specialist). -- Seek immediate medical care with worsening or with any concerns. Tre Don MD Related Data Home Medications ?Medication ?Instructions ?Recorded ?Confirmed fentanyl 75 mcg/hr transdermal 1 patch TOP Q72H PAIN #0 patches 11/19/15 11/30/22 patch (Duragesic) cetirizine 10 mg tablet 10 mg PO QDAY 03/29/22 11/30/22 dapagliflozin propanediol 5 mg 5 mg PO QDAY 03/29/22 11/30/22 tablet (Farxiga) acetaminophen 500 mg tablet 500 mg PO Q6HR PRN Pain 11/26/22 11/30/22 amlodipine 2.5 mg tablet 2.5 mg PO QAM 11/26/22 11/30/22 benzonatate 200 mg capsule 200 mg PO TID PRN Cough 11/26/22 11/30/22 omeprazole 40 mg capsule,delayed 40 mg PO QDAY 11/30/22 11/30/22 release Previous Rx's ?Medication ?Instructions ?Recorded sucralfate 100 mg/mL oral 5 ml PO QID #414 mL 03/15/24 suspension (Carafate) acetaminophen 500 mg tablet 500 mg PO Q6H PRN fever #20 tabs 08/10/24 (Acetaminophen Pain Relief) famotidine 40 mg tablet 40 mg PO .bedtime #30 tabs 09/15/24 meclizine 25 mg tablet 25 mg PO BID PRN dizziness #20 tabs 09/15/24 omeprazole 40 mg capsule,delayed 40 mg PO QDAY #30 caps 09/15/24 release ondansetron 4 mg disintegrating 4 mg PO TID PRN nausea and 09/15/24 tablet vomiting 30 days #10 tabs scopolamine base 1 mg over 3 days 1 mg topical .q72 hours PRN 09/15/24 transdermal patch (Transderm-Scop) dizziness or vertigo #4 ea Allergies Allergy/AdvReac Type Severity Reaction Status Date / Time pregabalin (From Lyrica) Allergy Severe Hives Verified 09/15/24 12:34 shellfish derived Allergy Severe Hives Verified 09/15/24 12:34 Course Quality Measures none Orders Category Date Time Status Bedside COVID-19 Antigen Test NOW Care 09/15/24 13:13 Completed Bedside Influenza A&B Antigen Test NOW Care 09/15/24 13:13 Completed EKG (ED ONLY) *Do not use* NOW Care 09/15/24 12:43 Completed EKG (ED ONLY) *Do not use* NOW Care 09/15/24 13:15 Completed Saline [Insert IV] NOW Care 09/15/24 13:13 Completed Straight [In and Out Catheter] X1 Care 09/15/24 13:[address] chest abdomen pelvis wo Stat Exams 09/15/24 13:[address] head/brain wo con Stat Exams 09/15/24 13:15 Completed EKG (ED Only) Stat Exams 09/15/24 12:43 Draft EKG (ED Only) Stat Exams 09/15/24 13:15 Ordered US gall bladder Stat Exams 09/15/24 14:59 Completed BNP [B-Type Natriuretic Peptide] Stat Lab 09/15/24 13:02 Completed CBC Stat Lab 09/15/24 13:02 Completed CMP [Comprehensive Metabolic Panel] Stat Lab 09/15/24 13:02 Completed Lipase Stat Lab 09/15/24 13:02 Completed Magnesium Stat Lab 09/15/24 13:02 Completed Thyroid Stimulating Hormone Stat Lab 09/15/24 13:02 Completed Troponin I Stat Lab 09/15/24 13:02 Completed UA [Urinalysis] Stat Lab 09/15/24 15:20 Completed Urine Culture Stat Lab 09/15/24 15:20 Completed Famotidine Inj [Pepcid Inj] Med 09/15/24 13:14 Discontinued 20 mg IVP X1 ONE Meclizine HCl [Antivert] Med 09/15/24 13:13 Discontinued 25 mg PO X1 ONE Ondansetron Inj [Zofran Inj] Med 09/15/24 13:13 Discontinued 4 mg IV X1 ONE Ondansetron Odt [Zofran Odt] Med 09/15/24 12:43 Discontinued 4 mg PO X1 ONE Pantoprazole Inj [Protonix Inj] Med 09/15/24 13:14 Discontinued 40 mg IVP X1 ONE Scopolamine [Transderm-Scop Patch] Med 09/15/24 13:13 Discontinued 1 mg TOP X1 ONE Sodium Chloride 0.9% 1000 ml [Ns] 1,000 ml Med 09/15/24 13:13 Discontinued IV 999 mls/hr Vital Signs Vital signs: Vital Signs Temperature 97.7 F 09/15/24 12:42 Pulse Rate 89 09/15/24 12:42 Respiratory Rate 19 09/15/24 12:42 Blood Pressure 142/76 H 09/15/24 12:42 Pulse Oximetry (%) 97 09/15/24 12:42 Oxygen Delivery Method Room Air 09/15/24 12:[address] [facility] Patient data External records reviewed:: [facility] previous records (Reviewed last ED visit dated 08/10/24 discharged with the following: Abdominal pain) Clinical information provided by:: patient and family (daughter translated) Social determinants that could affect healthcare access:: none Patient has the following chronic illnesses:: diabetes, hypertension, and left hip fracture uses a wheelchair How is presenting disease/condition affected by chronic disease/condition?: exacerbated by Evaluation data The following diagnostics were reviewed and interpreted by me:: lab results, radiology exam(s) and EKG tracing(s) (My interpretation of the EKG is: Sinus rhythm (92 bpm) with first-degree AV block and right BBB and nonspecific ST-T changes. Tre Don MD) Lab and/or radiology exams considered but not ordered:: none Interpretation Summary: Vertigo, GERD, chronic abdominal pain Medications Medications considered but not ordered:: none Medication administrations:: Medication Administration History Discontinued Medications Famotidine (Famotidine Inj 10 Mg/Ml Vial 2 Ml) 20 mg IVP X1 ONE Stop: 09/15/24 13:15 Last Admin: 09/15/24 13:29 Dose: 20 mg Documented By: NICOLASA Sodium Chloride (Ns) 1,000 mls @ 999 mls/hr IV .Q1H1M ONE Stop: 09/15/24 14:13 Last Infusion: 09/15/24 14:50 Dose: Infused Documented By: Admin: 09/15/24 13:31 Dose: 999 mls/hr Documented By: NICOLASA Meclizine HCl (Meclizine Hcl 25 Mg Tablet) 25 mg PO X1 ONE Stop: 09/15/24 13:14 Last Admin: 09/15/24 13:30 Dose: 25 mg Documented By: NICOLASA Ondansetron HCl (Ondansetron Odt 4 Mg Tabrap) 4 mg PO X1 ONE; Protocol Stop: 09/15/24 12:44 Last Admin: 09/15/24 13:48 Dose: Not Given Documented By: NICOLASA Non-Admin Reason: Discontinued Ondansetron HCl (Ondansetron Inj 2 Mg/Ml Inj 2 Ml) 4 mg IV X1 ONE; Protocol Stop: 09/15/24 13:14 Last Admin: 09/15/24 13:30 Dose: 4 mg Documented By: NICOLASA Pantoprazole Sodium (Pantoprazole Inj 40 Mg Vial) 40 mg IVP X1 ONE Stop: 09/15/24 13:15 Last Admin: 09/15/24 13:30 Dose: 40 mg Documented By: NICOLASA Scopolamine (Scopolamine 1 Mg Tdsy) 1 mg TOP X1 ONE Stop: 09/15/24 13:14 Last Admin: 09/15/24 13:30 Dose: 1 mg Documented By: NICOLASA Famotidine, IV fluids, zofran, Meclizine, Pantoprazole Sodium, Scopolamine patch Consultations Consultation(s) initiated? (list below): No Diagnosis Differential Diagnosis ED Complaint MDM: vertigo, IL, dehydration, electolyte imbalance Most likely diagnosis given after review of the tests above:: Vertigo, GERD, chronic abdominal pain Admission Indicated Admission indicated?: not indicated Explain why admission is indicated or not indicated:: There is no indication for admission. Admission Request Was there a request for admission?: No Disposition Plan Disposition Plan: Discharge Discharge Attestation Discharge Attestation: The patient and all family members were given an opportunity to ask questions and understood the discharge instructions. Discharge instructions specifically effects, indications for sooner follow up or return to the emergency department, and the expected course of current diagnosis. Patient condition: Stable Medical Decision Making MDM Narrative MDM Narrative: Larisa Trejo am scribing for and in the presence of Dr. Don. Differential Diagnosis Differential Diagnosis: vertigo, IL, dehydration, electolyte imbalance Lab Data 09/15/24 13:02 09/15/24 13:02 Labs: Lab Results 09/15/24 09/15/24 Range/Units 13:02 15:20 WBC 9.4 (3.8-10.6) Thou/mm3 RBC 4.28 L (4.50-5.90) Miln/mm3 Hgb 12.1 L (13.5-16.0) g/dL Hct 36.7 L (41.0-53.0) % MCV 86 (80-100) fL MCH 28.3 (25.0-35.0) pg MCHC 33.0 (31.0-37.0) g/dl RDW Std Deviation 51.2 H (35.1-43.9) fL Plt Count 270 (140-440) Thou/mm3 Neut % (Auto) 67 (37-80) % Lymph % (Auto) 25 (10-50) % [place] % (Auto) 5 (0-12) % Eos % (Auto) 2 (0-10) % Baso % (Auto) 0 (0-2.5) % Neut # (Auto) 6.3 (1.8-7.7) Thou/mm3 Lymph # (Auto) 2.4 (1.0-4.8) Thou/mm3 [place] # (Auto) 0.5 (0.0-0.8) Thou/mm3 Eos # (Auto) 0.2 (0.0-0.5) Thou/mm3 Baso # (Auto) 0.0 (0.0-0.2) Thou/mm3 Immature Gran # (Auto) 0.01 H (0.00-0.00) Thou/mm3 Absolute Nucleated RBC 0.00 (0.00-0.00) Thou/mm3 Immature Gran % 0 (0-0) % Nucleated RBC % 0 (0) /100 WBC Sodium 141 (136-145) mMol/L Potassium 3.9 (3.4-5.1) mMol/L Chloride 105 (98-107) mMol/L Carbon Dioxide 26.1 (20.0-31.0) mMol/L Anion Gap 10 (7-16) BUN 11 (9-23) mg/dL Creatinine 1.2 (0.6-1.3) mg/dL Estim Creat Clear Calc 31.3 L (>60) mL/min eGFR 59 L (60 - ) See Note BUN/Creatinine Ratio 9 L (12-20) Ratio Glucose 205 H (74-106) mg/dL Calculated Osmolality 286 (275-295) Calcium 9.6 (8.3-10.6) mg/dL Corrected Calcium 9.6 (8.5-10.1) mg/dL Magnesium 2.1 (1.6-2.6) mg/dL Total Bilirubin 0.4 (0.3-1.2) mg/dL AST 16 (0-34) U/L ALT < 7 L (10-49) U/L Alkaline Phosphatase 99 (46-116) U/L Troponin I < 0.002 (0.0-0.045) ng/mL B-Natriuretic Peptide 49 (0-100) pg/mL Total Protein 7.9 (5.7-8.2) gm/dL Albumin 4.3 (3.4-4.8) gm/dL Globulin 3.6 H (2.3-3.5) gm/dL Albumin/Globulin Ratio 1.2 (1.2-2.2) Lipase 27 (12-53) U/L TSH 4.19 (0.55-4.78) uIU/mL Ur Collection Type Clean Catch Urine Color Colorless A (Lt Yel-Yel) Urine Clarity Clear (Clear/Hazy) Urine pH 6.5 (5.0-7.0) Ur Specific [place] 1.012 (1.001-1.035) Urine Protein Negative (Neg - Trace) Urine Glucose (UA) 4+ A (Negative) Urine Ketones Negative (Negative) Urine Blood Negative (Negative) Urine Nitrite Negative (Negative) Urine Bilirubin Negative (Negative) Urine Urobilinogen (Auto) Negative (0.0-1.0) mg/dL Ur Leukocyte Esterase Negative (Negative) Urine RBC 0 (0-3) /hpf Urine WBC 0 (0-5) /hpf Ur Squamous Epith Cells < 1 (0-5) /hpf Amorphous Crystals Present A (Absent) Urine Bacteria None (None) Discharge Plan Plan Patient Disposition: HOME (Self Care) Prescriptions/Referrals Prescriptions/Med Rec: New meclizine 25 mg tablet 25 mg PO BID PRN (Reason: dizziness) Qty: 20 0RF ondansetron 4 mg tablet,disintegrating 4 mg PO TID PRN (Reason: nausea and vomiting) 30 Days Qty: 10 2RF scopolamine base [Transderm-Scop] 1 mg over 3 days patch 3 day 1 mg topical .q72 hours PRN (Reason: dizziness or vertigo) Qty: 4 2RF omeprazole 40 mg capsule,delayed release(DR/EC) 40 mg PO QDAY Qty: 30 0RF famotidine 40 mg tablet 40 mg PO .bedtime Qty: 30 0RF No Action fentanyl [Duragesic] 1 PATCH patch 72 hour 1 patch TOP Q72H Qty: 0 cetirizine 10 mg Tablet 10 mg PO QDAY Farxiga 5 mg Tablet 5 mg PO QDAY benzonatate 200 mg capsule 200 mg PO TID MDD 3 PRN (Reason: Cough) Patient Comments: TAKE 1 CAPSULE BY MOUTH THREE TIMES A DAY NEEDED FOR COUGH amlodipine 2.5 mg tablet 2.5 mg PO QAM Patient Comments: TAKE 1 TABLET BY MOUTH EVERY DAY FOR BLOOD PRESSURE acetaminophen 500 mg tablet 500 mg PO Q6HR PRN (Reason: Pain) omeprazole 40 mg capsule,delayed release(DR/EC) 40 mg PO QDAY Patient Comments: TAKE 1 CAPSULE BY MOUTH EVERY DAY 30 MIN BEFORE MEALS FOR STOMACH sucralfate [Carafate] 100 mg/mL suspension 5 ml PO QID Qty: 414 0RF Rx Instructions: swish in mouth and swallow; use after food/drink acetaminophen [Acetaminophen Pain Relief] 500 mg tablet 500 mg PO Q6H PRN (Reason: fever) Qty: 20 0RF Referrals: Leanne Serna PA-C [Primary Care Provider] - In 1 week Problem List Clinical Impression: Vertigo, GERD (gastroesophageal reflux disease), Chronic abdominal pain Patient/Caregiver Discharge Instructions Discharge Activity: activity as tolerated Education Materials: ED GERD (Adult), ED Vertigo, Unspecified Additional Instructions: Discharge instructions from Dr. Don: ? After extensive evaluation, there is no life-threatening condition.? Such as stroke or brain tumor or heart attack. -- Your severe symptoms are due to vertigo.? This is an inner ear problem that makes you feel like you are drunk or seasick.? See attached handout. -- Use scopolamine patch and/or meclizine for your severe symptoms. -- And Zofran for nausea/vomiting.? And increase oral fluid to prevent dehydration.? Maintain clear urine.? If dark or yellow, increase oral fluid. -- And do everything very slowly.? Including moving your head.? And when you sit up or stand up, wait a minute before you progress.? -- A factor of your chronic abdominal pain may be due to GERD (see attached handout), take omeprazole every morning and famotidine every night for a month. -- See your beater out leveling machine, Dr. Major, on 09/25/2024 as scheduled. --See your primary care provider on 09/16/2024 for recheck and further care. Ask to review all test results and official radiology reports, to make sure you receive all necessary follow-ups and monitoring. If needed, ask to help you get more care not available here in the ER.? Such as MRI imaging of your brain, physical therapy, table tilt test, and referrals to see specialists (such as neurologist and ENT specialist). -- Seek immediate medical care with worsening or with any concerns. Print Language: [place] Stand Alone Forms: Leslee Award Info., Patient Portal Info Letter
--- NOTE | 2024-09-15 13:15 | XR_ITS ---
Examination: CT chest, without intravenous contrast. CT abdomen, without intravenous contrast. CT pelvis, without intravenous contrast. 2-D sagittal and coronal reconstructions. 3-D reconstructions. Date and time of exam:September 15, 2024 1410 hours INDICATIONS: Onset abdominal pain chest pain today CTDI vol (mgy) 5.84 DLP (MGycm)387 Technique: Multiple CT images, 3.0 mm slice thickness, obtained chest, abdomen, pelvis, with the high-resolution 64 slice scanner.. Sagittal and coronal 2-D reconstructions are obtained. 3-D reconstructions Low dose protocols were performed. One or more of the following dose reduction techniques were used; automated exposure control, adjustment of the mA and/or KV according to patient size, use of iterative reconstruction technique. Findings: Heavy thoracic aortic calcification, no aneurysmal dilatation Pulmonary artery segments are not enlarged No paratracheal tracheobronchial or bronchopulmonary adenopathy Mild enlargement cardiac contour with significant vascular congestion and subtle edema at the lung bases No lobar pneumonia Absent gallbladder Common hepatic common bile ducts poorly visualized, measuring at least 9 mm Spleen not enlarged Atrophic pancreas Moderate renal parenchymal scar formation, 2 mm lower pole left renal calculus, no hydronephrosis or ureteral calculi Normal appendix No bowel obstruction or diverticulitis Urinary bladder intact Left hip bipolar hemiarthroplasty with satisfactory alignment Prominent osteopenia IMPRESSION: Mild heart failure Prominent extrahepatic biliary tract system, please see the MRCP report June 01, 2024, recommend hepatobiliary sonography follow-up Moderate bilateral renal parenchymal scar formation 2 mm lower pole left renal calculus Normal appendix
--- NOTE | 2024-09-15 13:15 | XR_ITS ---
Examination: CT brain head without contrast. 2-D sagittal coronal reconstructions Date and time of exam:September 15, 2024 1408 hours INDICATIONS: Onset dizziness today CTDI: vol (mGy):46.9 DLP: (mGycm):930 Technique: Multiple CT axial sections of the brain have been obtained, 5 mm slice thickness. Contrast has not been administered. 2-D sagittal, coronal reconstructions have been obtained Low dose protocols were performed. One or more of the following dose reduction techniques were used; automated exposure control, adjustment of the mA and/or KV according to patient size, use of iterative reconstruction technique. Findings: No significant ventricular enlargement. Intra-axial or extra-axial hemorrhage density is not seen. No mass effect or midline shift Basal cisterns are not remarkable. Fourth ventricle is midline. Cranial vault intact. Total opacification right maxillary antrum Impression: Negative for acute hemorrhage, mass effect or midline shift Advise clinical correlation follow-up accordingly
[2024-09-15 13:26] LABS: Basophils % (Auto) 0 % (0-2.5); Eosinophils # (Auto) 0.2 Thou/mm3 (0.0-0.5); Eosinophils % (Auto) 2 % (0-10); Hematocrit 36.7 % (41.0-53.0); Hemoglobin 12.1 g/dL (13.5-16.0); Immature Granulocytes % (Auto) 0 % (0-0); Immature Granulocytes Auto 0.01 Thou/mm3 (0.00-0.00); Lymphocytes # (Auto) 2.4 Thou/mm3 (1.0-4.8); Lymphocytes % (Auto) 25 % (10-50); Mean Corpuscular Hemoglobin 28.3 pg (25.0-35.0); Mean Corpuscular Volume 86 fL (80-100); Monocytes # (Auto) 0.5 Thou/mm3 (0.0-0.8); Monocytes % (Auto) 5 % (0-12); Neutrophils # (Auto) 6.3 Thou/mm3 (1.8-7.7); Neutrophils % (Auto) 67 % (37-80); Nucleated Red Blood Cell % 0 /100 WBC (0); Platelet Count 270 Thou/mm3 (140-440); RDW Standard Deviation 51.2 fL (35.1-43.9); Red Blood Count 4.28 Miln/mm3 (4.50-5.90); White Blood Count 9.4 Thou/mm3 (3.8-10.6)
[2024-09-15] MEDS: FAMOTIDINE INJ 10 MG/ML VIAL 2 ML 20 MG IVP (13:29)
[2024-09-15] MEDS: MECLIZINE HCL 25 MG TABLET PO (13:30)
[2024-09-15] MEDS: SCOPOLAMINE 1 MG TDSY TOP (13:30)
[2024-09-15] MEDS: ONDANSETRON INJ 2 MG/ML INJ 2 ML 4 MG IV (13:30)
[2024-09-15] MEDS: PANTOPRAZOLE INJ 40 MG VIAL IVP (13:30)
[2024-09-15] MEDS: SODIUM CHLORIDE 0.9% 1000 ML 1,000 ML 999 ML IV (13:31)
[2024-09-15 13:40] LABS: B-Type Natriuretic Peptide 49 pg/mL (0-100)
[2024-09-15 13:44] LABS: Albumin, Serum 4.3 gm/dL (3.4-4.8); Alkaline Phosphatase 99 U/L (46-116); Anion Gap 10 (7-16); Aspartate Amino Transferase 16 U/L (0-34); BUN/Creatinine Ratio 9 Ratio (12-20); Blood Urea Nitrogen 11 mg/dL (9-23); Calcium 9.6 mg/dL (8.3-10.6); Calcium (Corrected) 9.6 mg/dL (8.5-10.1); Carbon Dioxide 26.1 mMol/L (20.0-31.0); Chloride 105 mMol/L (98-107); Creatinine (Component) 1.2 mg/dL (0.6-1.3); Estimated Creatinine Clearance 31.3 mL/min (>60); Glucose 205 mg/dL (74-106); Lipase 27 U/L (12-53); Magnesium 2.1 mg/dL (1.6-2.6); Osmolality,Calculated 286 (275-295); Potassium 3.9 mMol/L (3.4-5.1); Sodium 141 mMol/L (136-145); Troponin I < 0.002 ng/mL (0.0-0.045); eGFR 59 See Note
[2024-09-15 13:55] LABS: Alanine Aminotransferase < 7 U/L (10-49); Albumin/Globulin Ratio 1.2 (1.2-2.2); Bilirubin,Total 0.4 mg/dL (0.3-1.2); Globulin 3.6 gm/dL (2.3-3.5); Thyroid Stimulating Hormone 4.19 uIU/mL (0.55-4.78); Total Protein 7.9 gm/dL (5.7-8.2)
[2024-09-15 14:31] VITALS: BP 134/78; PULSE 91; RESP 16; TEMP 36.7; O2SAT 98
--- NOTE | 2024-09-15 14:59 | XR_ITS ---
Examination: Abdomen sonogram, Limited Date and time of exam: September 15, 2024 1534 hours INDICATIONS: Abdominal pain and vomiting beginning 2 days ago, MRCP June 01, 2024 x-ray hepatic biliary tract dilatation with abrupt termination of the distal common bile duct Technique: Real-time reynoso scale transabdominal sonographic images of the upper abdomen obtained. Findings: Absent gallbladder Common bile duct only partly visualized 0.7 cm no stones Pancreatic head 2.7 cm Liver 12.4 cm lobular contour fatty infiltration Normal hepatopedal portal venous flow Patent IVC IMPRESSION: Incomplete visualization common bile duct Recommend repeat MRCP follow-up
[2024-09-15 15:33] LABS: Collection Type, Urine Clean Catch; RBC,Urine 0 /hpf (0-3); WBC,Urine 0 /hpf (0-5)
[2024-09-15 15:54] LABS: Amorphous Crystals,Urine Present (Absent); Bilirubin,Urine Negative (Negative); Blood,Urine Negative (Negative); Clarity,Urine Clear (Clear/Hazy); Color,Urine Colorless (Lt Yel-Yel); Glucose, Urine 4+ (Negative); Ketones,Urine Negative (Negative); Leukocyte Esterase,Urine Negative (Negative); Nitrite,Urine Negative (Negative); PH,Urine 6.5 (5.0-7.0); Protein,Urine Negative (Neg - Trace); Specific Gravity,Urine 1.012 (1.001-1.035); Squamous Epithelial Cell,Urine < 1 /hpf (0-5); Urobilinogen,Urine Negative mg/dL (0.0-1.0)
== END 2024-09-15 17:36 | disposition home or self-care (01) ==
PROVIDERS: Nurse Practitioner Family; Emergency Provider Emergency Medicine; PCP Physician Assistant
DX: K21.9 Gastro-esophageal reflux disease without esophagitis (principal); R42 Dizziness and giddiness; R07.9 Chest pain, unspecified; I44.0 Atrioventricular block, first degree; I45.10 Unspecified right bundle-branch block; I10 Essential (primary) hypertension
CPT/HCPCS: 36415; 70450; 71250; 74176; 76705; 80053; 81001; 83690; 83735; 83880; 84443; 84484; 85025; 87086; 87400; 87811; 93005; 96374; 96375; 99284; J2405; J2470; J3490; J7030; A9270

== ENCOUNTER 2024-10-09 09:09 | Emergency (ER) | payer MEDICARE, MEDICAID, SELFPAY ==
[2024-10-09 09:19] VITALS: BP 149/69; PULSE 81; RESP 17; TEMP 36.8; O2SAT 97; BMI 25.0
--- NOTE | 2024-10-09 09:41 | XR_ITS ---
Examination: AP chest single view Technique one AP portable upright chest single view Exam date and time: October 01, 2024 1014 hours INDICATIONS: Onset chest pain today Comparison July 21, 2023 FINDINGS: Mild opacity at the lung bases Mild prominence left ventricle Severe osteopenia IMPRESSION: Bibasilar bronchitis versus early bronchopneumonia, clinical correlation advised
--- NOTE | 2024-10-09 09:41 | EKG_ITS ---
[facility] Test Date: 2024-10-09 Pat Name: KENDRA CAMPOS Department: Room: - Gender: Male [employer]: : 1935 Requested By: Libertad Sheets ([facility]) Consuelo Order Number: [id number] Reading MD: Libertad Sheets ([facility]) Consuelo Measurements Intervals [place] Rate: 78 P: 56 [place]: 182 QRS: 14 QRSD: 144 T: 41 QT: 403 QTc: 459 Interpretive Statements SINUS RHYTHM RIGHT BUNDLE BRANCH BLOCK [120+ ms QRS DURATION, UPRIGHT V1, 40+ ms S IN I/aVL/V4/V5/V6] Compared to ECG 09/15/2024 12:52:18 First degree AV block no longer present /store/S0/[id number].pdf
--- NOTE | 2024-10-09 09:41 | PD.EDRME ---
Rapid Medical Screening Exam RME Arrival date/time: 10/09/24 09:09 This is a 88-year-old male here in the emergency department with multiple complaints of abdominal pain, gastric burning, constipation. I have greeted and performed a focused initial assessment of this patient. Initial appropriate labs ordered at this time. A comprehensive ED assessment and evaluation of the patient and analysis of all test and completion of medical decision making process will be conducted by additional ED provider. Chief Complaint: Abdominal Pain Time Seen by Provider: 10/09/24 09:12 Vital signs: Vital Signs Temperature 98.3 F 10/09/24 09:19 Pulse Rate 81 10/09/24 09:19 Respiratory Rate 17 10/09/24 09:19 Blood Pressure 149/69 H 10/09/24 09:19 Pulse Oximetry (%) 97 10/09/24 09:19
[2024-10-09 10:11] LABS: Basophils % (Auto) 1 % (0-2.5); Eosinophils # (Auto) 0.2 Thou/mm3 (0.0-0.5); Eosinophils % (Auto) 3 % (0-10); Hematocrit 36.2 % (41.0-53.0); Hemoglobin 11.9 g/dL (13.5-16.0); Immature Granulocytes % (Auto) 0 % (0-0); Immature Granulocytes Auto 0.01 Thou/mm3 (0.00-0.00); Lymphocytes # (Auto) 1.9 Thou/mm3 (1.0-4.8); Lymphocytes % (Auto) 29 % (10-50); Mean Corpuscular HGB Conc 32.9 g/dl (31.0-37.0); Mean Corpuscular Hemoglobin 28.3 pg (25.0-35.0); Mean Corpuscular Volume 86 fL (80-100); Monocytes # (Auto) 0.4 Thou/mm3 (0.0-0.8); Monocytes % (Auto) 7 % (0-12); Neutrophils # (Auto) 3.9 Thou/mm3 (1.8-7.7); Neutrophils % (Auto) 60 % (37-80); Nucleated Red Blood Cell % 0 /100 WBC (0); Platelet Count 262 Thou/mm3 (140-440); RDW Standard Deviation 50.2 fL (35.1-43.9); White Blood Count 6.4 Thou/mm3 (3.8-10.6)
[2024-10-09 10:21] LABS: INR 0.9 (0.9-1.3); Prothrombin Time 10.3 Seconds (9.0-12.2)
[2024-10-09 10:25] LABS: B-Type Natriuretic Peptide 54 pg/mL (0-100)
[2024-10-09 10:27] LABS: Alanine Aminotransferase 22 U/L (10-49); Albumin, Serum 4.2 gm/dL (3.4-4.8); Albumin/Globulin Ratio 1.1 (1.2-2.2); Alkaline Phosphatase 91 U/L (46-116); Anion Gap 8 (7-16); Aspartate Amino Transferase 34 U/L (0-34); BUN/Creatinine Ratio 8 Ratio (12-20); Bilirubin,Total 0.4 mg/dL (0.3-1.2); Blood Urea Nitrogen 8 mg/dL (9-23); Carbon Dioxide 31.2 mMol/L (20.0-31.0); Chloride 103 mMol/L (98-107); Estimated Creatinine Clearance 37.5 mL/min (>60); Globulin 3.8 gm/dL (2.3-3.5); Glucose 167 mg/dL (74-106); Lipase 23 U/L (12-53); Osmolality,Calculated 285 (275-295); Potassium 4.4 mMol/L (3.4-5.1); Sodium 142 mMol/L (136-145); Troponin I < 0.020 ng/mL (0.0-0.045); eGFR > 60 See Note
[2024-10-09 12:55] VITALS: BP 171/75; PULSE 77; RESP 16; TEMP 36.5; O2SAT 100
--- NOTE | 2024-10-09 13:04 | EDNOTE_ITS ---
<Statement entered by Eri Baron MD - 10/10/24 17:32> As co-signing physician, I was present and available for consult prn. I concur with the plan and care as documented by the midlevel provider. ED Abdominal Pain RME/HPI General Chief Complaint: Abdominal Pain Stated complaint: ABD PAIN, CONSTIPATION, RIGHT EARACHE, SORE THROAT Time seen by provider: 10/09/24 09:12 Arrival date/time: 10/09/24 09:09 RME / HPI RME / HPI narrative: 88 years old male patient was brought in for evaluation regarding epigastric pain. Also symptoms for the last few days as epigastric pain, described as burning-like sensation, severity moderate. Patient's been having constipation also. Also complaining of right earache, and sore throat, currently taking antibiotic for ear infection started few days ago. No fever no vomiting no other complaints noted. Related Data Home Medications ?Medication ?Instructions ?Recorded ?Confirmed fentanyl 75 mcg/hr transdermal 1 patch TOP Q72H PAIN # 0 patches 11/19/15 11/30/22 patch (Duragesic) cetirizine 10 mg tablet 10 mg PO QDAY 03/29/2211/30 dapagliflozin propanediol 5 mg 5 mg PO QDAY 03/29/22 0 11/30/22 tablet (Farxiga) acetaminophen 500 mg tablet 500 mg PO Q6HR PRN Pain 11/30/22 amlodipine 2.5 mg tablet 2.5 mg PO QAM 11/26/2211/30 benzonatate 200 mg capsule 200 mg PO TID PRN Cough 11/30/22 omeprazole 40 mg capsule,delayed 40 mg PO QDAY 3 11/30/22 release Previous Rx's ?Medication ?Instructions ?Recorded sucralfate 100 mg/mL oral 5 ml PO QID #414 mL 03/15/24 suspension (Carafate) acetaminophen 500 mg tablet 500 mg PO Q6H PRN fever #2 0 tabs 08/10/24 (Acetaminophen Pain Relief) famotidine 40 mg tablet 40 mg PO .bedtime #30 tabs 0 09/15/24 meclizine 25 mg tablet 25 mg PO BID PRN dizziness # 20 tabs 09/15/24 omeprazole 40 mg capsule,delayed 40 mg PO QDAY #30 cap s 09/15/24 release ondansetron 4 mg disintegrating 4 mg PO TID PRN nausea and 09/15/24 tablet vomiting 30 days #10 tabs scopolamine base 1 mg over 3 days 1 mg topical .q72 ho urs PRN 09/15/24 transdermal patch (Transderm-Scop) dizziness or vertig o #4 ea pantoprazole 40 mg tablet,delayed 40 mg PO QDAY #20 ta bs 10/09/24 release (Protonix) polyethylene glycol 3350 17 4 g PO QDAY #238 grams gram/dose oral powder (Miralax) Allergies Allergy/AdvReac Type Severity Reaction Status Date / Time pregabalin (From Lyrica) Allergy Severe Hives Verified 09/15/24 12:34 shellfish derived Allergy Severe Hives Verified 09/15/24 12:34 Review of Systems Review of Systems Narrative Review of Systems: Review of system reviewed and within normal limits except mentioned in HPI ED Exam Narrative Physical exam: VITAL SIGNS: Reviewed. GENERAL APPEARANCE: Alert and interactive, follows commands, no acute distress, HEAD AND FACE: Non-traumatic. ENT: PERRL, pink conjunctivitis, eyelid no trauma, Mucous membrane moist. NECK: Supple, nontender, no nuchal rigidity. CHEST: No tenderness, no crepitus, no paradoxical movement, no retractions. LUNGS: Clear, well ventilated, symmetric, no rales, no wheezing, no ronchi, no stridor, good breath sounds bilaterally. HEART: Regular rate, regular rhythm, no murmur, no gallops. ABDOMEN: Soft, positive bowel sounds, nondistended, no guarding, epigastric tenderness, no rebound, no masses, RECTAL: Deferred. GENITAL: Deferred. NEUROLOGICAL: Gross motor function intact sensory function intact, Appropriate f or age. MUSCULOSKELETAL: low back nontender, full range of motion. EXTREMITIES: Nontender, full range of motion. SKIN: Color pink, dry, no rash, no lacerations, no abrasions, no contusions. LYMPHATICS: Deferred. Course Quality Measures none Orders Category Date Time Status Bedside COVID-19 Antigen Test NOW Care 10/09/24 09:41 Active Bedside Influenza A&B Antigen Test NOW Care 10/09/24 09:[address] Screening NOW Care 10/09/24 13:04 Active EKG (ED ONLY) *Do not use* NOW Care 10/09/24 09:[address] abdomen pelvis wo con Stat Exams 10/09/24 15:16 Completed EKG (ED Only) Stat Exams 10/09/24 09:41 Draft XR chest 1V portable Stat Exams 10/09/24 09:41 Completed B-Type Natriuretic Peptide Stat Lab 10/09/24 09:57 Completed CBC Stat Lab 10/09/24 09:57 Completed Comprehensive Metabolic Panel Stat Lab 10/09/24 09:57 Completed Lipase Stat Lab 10/09/24 09:57 Completed Prothrombin Time with INR Stat Lab 10/09/24 09:57 Completed Troponin I Stat Lab 10/09/24 09:57 Completed Famotidine Inj [Pepcid Inj] Med 10/09/24 13:03 Discontinued 20 mg IVP X1 ONE Magnesium Citrate Liqd [Citrate of Magnesia Liqd] Med 10/09/24 13:06 Discontinued 300 ml PO X1 ONE Metoclopramide Inj [Reglan Inj] Med 10/09/24 13:03 Discontinued 10 mg IVP X1 ONE Sodium Chloride 0.9% 1000 ml [Ns] 1,000 ml Med 10/09/24 13:03 Discontinued IV 999 mls/hr Vital Signs Vital signs: Vital Signs Temperature 98.3 F 10/09/24 09:19 Pulse Rate 81 10/09/24 09:19 Respiratory Rate 17 10/09/24 09:19 Blood Pressure 149/69 H 10/09/24 09:19 Pulse Oximetry (%) 97 10/09/24 09:19 Abdominal Pain [facility] MDM Narrative MDM Narrative:: 88 years old male patient was brought in for evaluation regarding epigastric pain. Also symptoms for the last few days as epigastric pain, described as burning-like sensation, severity moderate. Patient's been having constipation also. Also complaining of right earache, and sore throat, currently taking antibiotic for ear infection started few days ago. No fever no vomiting no other complaints noted. EKG showed sinus rhythm, ventricular rate of 78 bpm, no ST segment elevation or depression with laboratory workup all came back unremarkable. CT scan of the abdomen and pelvis came back with no acute pathology. Results discussed with the patient. Troponin is normal. Chest x-ray showed Bibasilar bronchitis versus early bronchopneumonia, clinical correlation advised Patient does not need any antibiotic patient is not having any cough and not having any leukocytosis and besides patient is currently on her last few days of antibiotic for the otitis media. Patient data External records reviewed:: None Clinical information provided by:: patient and family Social determinants that could affect healthcare access:: none Patient has the following chronic illnesses:: hypertension diabetes mellitus How is presenting disease/condition affected by chronic disease/condition?: exacerbated by Evaluation data The following diagnostics were reviewed and interpreted by me:: lab results, radiology exam(s) and EKG tracing(s) Lab and/or radiology exams considered but not ordered:: None Interpretation Summary: See results in [facility] Medications / Prescriptions Medications or Prescriptions considered but not ordered:: None Medication administrations:: Medication Administration History Discontinued Medications Famotidine (Famotidine Inj 10 Mg/Ml Vial 2 Ml) 20 mg IVP X1 ONE Stop: 10/09/24 13:04 Last Admin: 10/09/24 13:47 Dose: 20 mg Documented By: GM Sodium Chloride (Ns) 1,000 mls @ 999 mls/hr IV .Q1H1M ONE Stop: 10/09/24 14:03 Last Infusion: 10/09/24 16:50 Dose: Infused Documented By: Admin: 10/09/24 13:52 Dose: 999 mls/hr Documented By: GM Magnesium Citrate (Magnesium Citrate 300 Ml Btl) 300 ml PO X1 ONE Stop: 10/09/24 13:07 Last Admin: 10/09/24 13:47 Dose: 300 ml Documented By: GM Metoclopramide HCl (Metoclopramide Inj 5 Mg/Ml Vial 2 Ml) 10 mg IVP X1 ONE; Protocol Stop: 10/09/24 13:04 Last Admin: 10/09/24 13:47 Dose: 10 mg Documented By: GM Magnesium citrate, IV fluids for hydration Pepcid and Reglan Consultations Consultation(s) initiated? (list below): No Diagnosis Differential diagnosis abdominal pain: abdominal pain, constipation and pancreatitis Most likely diagnosis given after review of the tests above:: Constipation abdominal pain Admission Indicated Admission indicated?: not indicated Admission Request Was there a request for admission?: No Disposition Plan Disposition Plan: Discharge Discharge Attestation Discharge Attestation: The patient and all family members were given an opportunity to ask questions and understood the discharge instructions. Discharge instructions specifically effects, indications for sooner follow up or return to the emergency department, and the expected course of current diagnosis. Patient condition: Stable Discharge Plan Plan Patient Disposition: HOME (Self Care) Disposition Comment: Stable Prescriptions/Referrals Prescriptions/Med Rec: New pantoprazole [Protonix] 40 mg tablet,delayed release (DR/EC) 40 mg PO QDAY Qty: 20 0RF polyethylene glycol 3350 [Miralax] 17 gram/dose powder 4 g PO QDAY Qty: 238 0RF No Action fentanyl [Duragesic] 1 PATCH patch 72 hour 1 patch TOP Q72H Qty: 0 cetirizine 10 mg Tablet 10 mg PO QDAY Farxiga 5 mg Tablet 5 mg PO QDAY meclizine 25 mg tablet 25 mg PO BID PRN (Reason: dizziness) Qty: 20 0RF ondansetron 4 mg tablet,disintegrating 4 mg PO TID PRN (Reason: nausea and vomiting) 30 Days Qty: 10 2RF scopolamine base [Transderm-Scop] 1 mg over 3 days patch 3 day 1 mg topical .q72 hours PRN (Reason: dizziness or vertigo) Qty: 4 2RF omeprazole 40 mg capsule,delayed release(DR/EC) 40 mg PO QDAY Qty: 30 0RF famotidine 40 mg tablet 40 mg PO .bedtime Qty: 30 0RF benzonatate 200 mg capsule 200 mg PO TID MDD 3 PRN (Reason: Cough) Patient Comments: TAKE 1 CAPSULE BY MOUTH THREE TIMES A DAY NEEDED FOR COUGH amlodipine 2.5 mg tablet 2.5 mg PO QAM Patient Comments: TAKE 1 TABLET BY MOUTH EVERY DAY FOR BLOOD PRESSURE acetaminophen 500 mg tablet 500 mg PO Q6HR PRN (Reason: Pain) omeprazole 40 mg capsule,delayed release(DR/EC) 40 mg PO QDAY Patient Comments: TAKE 1 CAPSULE BY MOUTH EVERY DAY 30 MIN BEFORE MEALS FOR STOMACH sucralfate [Carafate] 100 mg/mL suspension 5 ml PO QID Qty: 414 0RF Rx Instructions: swish in mouth and swallow; use after food/drink acetaminophen [Acetaminophen Pain Relief] 500 mg tablet 500 mg PO Q6H PRN (Reason: fever) Qty: 20 0RF Referrals: Leanne Serna PA-C [Primary Care Provider] - In 1 week Problem List Clinical Impression: Abdominal pain, Constipation Patient/Caregiver Discharge Instructions Discharge Activity: activity as tolerated Education Materials: ED Constipation (Adult) Additional Instructions: Thank you for the opportunity for serving you today. You are stable for discharged . You are advised to: Follow-up with your PCP in 1 to 2 days Return to ED for worsening of symptoms Increase oral fluids Take medication as prescribed Print Language: Sekou Stand Alone Forms: Leslee Award Info., Patient Portal Info Letter PA/GABRIELA Supervising Physician SABI/GABRIELA Supervising Physician: MD Pradeep
[2024-10-09] MEDS: FAMOTIDINE INJ 10 MG/ML VIAL 2 ML 20 MG IVP (13:47)
[2024-10-09] MEDS: METOCLOPRAMIDE INJ 5 MG/ML VIAL 2 ML 10 MG IVP (13:47)
[2024-10-09] MEDS: MAGNESIUM CITRATE 300 ML BTL PO (13:47)
[2024-10-09] MEDS: SODIUM CHLORIDE 0.9% 1000 ML 1,000 ML 999 ML IV (13:52)
[2024-10-09 14:02] VITALS: BP 152/66; PULSE 86; RESP 17; TEMP 36.4; O2SAT 97
--- NOTE | 2024-10-09 15:16 | XR_ITS ---
Examination: CT abdomen and pelvis without contrast. Coronal 3-D reconstructions. Sagittal 2-D reconstructions. Date and time of exam:October 09, 2024 1613 hours Comparison September 15, 2024 CT chest abdomen pelvis INDICATION: History of abdominal pain, abnormal extrahepatic biliary tract dilatation with abrupt termination of the distal common bile duct on MRCP June 01, 2024 CTDI: vol (mGy): 5.74 DLP: (mGycm): 310 Technique: Axial images of the abdomen have been obtained, 3 mm slice thickness Intravenous contrast material has not been administered. Low dose protocols were performed. One or more of the following dose reduction techniques were used; automated exposure control, adjustment of the mA and/or KV according to patient size, use of iterative reconstruction technique. Findings: Opacity in the right middle lobe consistent with pneumonia Absent gallbladder The common hepatic duct measures 11.3 cm and common bile duct 9 mm No definite stones No pancreatic mass Pancreatic duct is not dilated Bilateral renal cortical thinning Multiple mildly fluid distended small bowel loops No pericecal inflammatory change Left hip arthroplasty degrade scan image quality in the pelvis Transverse prostate dimension 4.2 cm Moderate osteopenia Impression : There remains extrahepatic biliary tract dilatation, recommend repeat MRCP to assess for common bile duct stones and/or stricture of the common bile duct Small bowel ileus versus enteritis, clinical correlation advised
[2024-10-09 16:07] VITALS: BP 133/67; PULSE 73; RESP 17; TEMP 36.5; O2SAT 97
[2024-10-09 18:12] VITALS: BP 154/76; PULSE 65; RESP 17; TEMP 36.6; O2SAT 96
== END 2024-10-09 18:22 | disposition home or self-care (01) ==
PROVIDERS: Nurse Practitioner Primary Care; Emergency Provider Emergency Medicine; PCP Physician Assistant
DX: K59.00 Constipation, unspecified (principal); R10.13 Epigastric pain; H66.91 Otitis media, unspecified, right ear; R07.9 Chest pain, unspecified; I45.10 Unspecified right bundle-branch block; I10 Essential (primary) hypertension
CPT/HCPCS: 36415; 71045; 74176; 80053; 83690; 83880; 84484; 85025; 85610; 87400; 87811; 93005; 96361; 96374; 96375; 99284; J2765; J3490; J7030; A9270

== ENCOUNTER 2025-02-24 13:26 | Emergency (ER) | payer MEDICARE, MEDICAID, SELFPAY ==
[2025-02-24 13:28] VITALS: BMI 19.3
[2025-02-24 14:47] VITALS: BP 126/64; PULSE 68; RESP 18; TEMP 36.9; O2SAT 99
--- NOTE | 2025-02-24 15:02 | PD.EDRME ---
Rapid Medical Screening Exam RME Arrival date/time: 02/24/25 13:26 Chief Complaint: Abdominal Pain Vital signs: Vital Signs Temperature 98.5 F 02/24/25 14:47 Pulse Rate 68 02/24/25 14:47 Respiratory Rate 18 02/24/25 14:47 Blood Pressure 126/64 02/24/25 14:47 Pulse Oximetry (%) 99 02/24/25 14:47 Oxygen Delivery Method Room Air 02/24/25 14:47 Pulse ox is 99% room air Vital signs reviewed by provider: Yes RME Narrative: Patient has a chief complaint of chest pain as well as abdominal pain with nausea. Denies vomiting. Denies diarrhea. Patient is not able to answer his own questions and a family member is very vague with regards to the recent past history.
--- NOTE | 2025-02-24 15:03 | EKG_ITS ---
[facility] Test Date: 2025-02-24 Pat Name: KENDRA CAMPOS Department: Room: - Gender: Male Pediatric Dental Assistant: : [id number] Requested By: Aj Segura Order Number: [id number] Reading MD: Aj Segura Measurements Intervals [place] Rate: 73 P: 72 [place]: 201 QRS: 20 QRSD: 131 T: 49 QT: 426 QTc: 470 Interpretive Statements SINUS RHYTHM RIGHT BUNDLE BRANCH BLOCK [120+ ms QRS DURATION, UPRIGHT V1, 40+ ms S IN I/aVL/V4/V5/V6] Compared to ECG 10/09/2024 09:45:49 No significant changes /store/S0/[id number].pdf
--- NOTE | 2025-02-24 15:03 | XR_ITS ---
Examination: PA lateral chest 2 views TECHNIQUE: Upright PA lateral chest 2 views Date and time: February 24, 2025, 1510 hours INDICATIONS: Chest pain beginning 2 days ago. FINDINGS: Normal heart size Retrocardiac gastric hernia. Ectatic thoracic aorta. No pneumonia or pulmonary edema IMPRESSION: No pneumonia or pulmonary edema
--- NOTE | 2025-02-24 15:25 | PD.EDABDPN ---
ED Abdominal Pain RME/HPI General Chief Complaint: Abdominal Pain Stated complaint: N/V, ABD/CHEST/NECK PAIN Time seen by provider: 02/24/25 15:17 Arrival date/time: 02/24/25 13:26 RME / HPI RME / HPI narrative: Patient has a chief complaint of chest pain as well as abdominal pain with nausea. Denies vomiting. Denies diarrhea. Patient is not able to answer his own questions and a family member is very vague with regards to the recent past history. DR. GARNER MAIN ED EVALUATION History obtained by granddaughter and daughter who helped translate for the patient. 89 year old male with history of chronic pain on Fentanyl patches, hypertension, diabetes, gastritis presents to the ED for evaluation of abdominal pain beginning 3 days ago. Described a hot and cold sensation that begins in the epigastric region that radiates up to his chest and neck. Accompanied by decreased appetite, nausea, vomiting, diarrhea, feeling short of breath and a burning hot sensation while urinating. Denies any sick contacts or recent travel. Denies fevers, chills, cough, sore throat. The patients daughter states there has not been a day he does not use the Fentanyl patch and wear them everyday since prescribed. Related Data Home Medications ?Medication ?Instructions ?Recorded ?Confirmed fentanyl 75 mcg/hr transdermal 1 patch TOP Q72H PAIN #0 patches 11/19/15 11/30/22 patch (Duragesic) cetirizine 10 mg tablet 10 mg PO QDAY 03/29/22 11/30/22 dapagliflozin propanediol 5 mg 5 mg PO QDAY 03/29/22 11/30/22 tablet (Farxiga) acetaminophen 500 mg tablet 500 mg PO Q6HR PRN Pain 11/26/22 11/30/22 amlodipine 2.5 mg tablet 2.5 mg PO QAM 11/26/22 11/30/22 benzonatate 200 mg capsule 200 mg PO TID PRN Cough 11/26/22 11/30/22 omeprazole 40 mg capsule,delayed 40 mg PO QDAY 11/30/22 11/30/22 release Previous Rx's ?Medication ?Instructions ?Recorded sucralfate 100 mg/mL oral 5 ml PO QID #414 mL 03/15/24 suspension (Carafate) acetaminophen 500 mg tablet 500 mg PO Q6H PRN fever #20 tabs 08/10/24 (Acetaminophen Pain Relief) famotidine 40 mg tablet 40 mg PO .bedtime #30 tabs 09/15/24 meclizine 25 mg tablet 25 mg PO BID PRN dizziness #20 tabs 09/15/24 omeprazole 40 mg capsule,delayed 40 mg PO QDAY #30 caps 09/15/24 release ondansetron 4 mg disintegrating 4 mg PO TID PRN nausea and 09/15/24 tablet vomiting 30 days #10 tabs scopolamine base 1 mg over 3 days 1 mg topical .q72 hours PRN 09/15/24 transdermal patch (Transderm-Scop) dizziness or vertigo #4 ea pantoprazole 40 mg tablet,delayed 40 mg PO QDAY #20 tabs 10/09/24 release (Protonix) polyethylene glycol 3350 17 4 g PO QDAY #238 grams 10/09/24 gram/dose oral powder (Miralax) Allergies Allergy/AdvReac Type Severity Reaction Status Date / Time pregabalin (From Lyrica) Allergy Severe Hives Verified 02/24/25 13:31 shellfish derived Allergy Severe Hives Verified 02/24/25 13:31 Review of Systems Review of Systems Systems Reviewed: All systems reviewed, normal except as documented Past Medical History Past Medical History CARDIAC: Positive Hypercholesterolemia and Hypertension GASTROINTESTINAL: Positive Gastrointestinal Disorders, Gall Bladder Disease and Gastroesophageal Reflux Disease MUSCULOSKELETAL: Positive Musculoskeletal Disorders and Arthritis ENT: Positive Cataracts ENDOCRINE: Positive Endocrine Disorders and Diabetes Mellitus Type 2 Family History FAMILY HISTORY: Negative Family Respiratory Disorders, Family Cardiac Disorders or Family Gastrointestinal Problems Social History SMOKING STATUS: Never smoker SUBSTANCE USE: does not use ED Exam Narrative Physical exam: Constitutional: Awake, alert, nontoxic, appears uncomfortable, in pain distress HEENT: NC, AT, EOMI Neck: Supple CV: RRR, no m/r/g Lungs: CTAB, no w/r/r, no respiratory distress. Abd: Soft, mid and epigastric TTP that is worse in the epigastric region, no HSM noted to palpation Extremities: No deformities, no edema noted Neuro: Awake, alert, no acute neuro deficit noted. Skin: Warm, dry, intact Course Course Course Narrative: 1650h: Labs reviewed generally unremarkable other than slightly elevated lactate at 2.2. Chest x-ray is unremarkable. CT abdomen pelvis with contrast is pending. Patient was quite uncomfortable on initial exam. GI cocktail was given. Currently awaiting results of CT and reevaluation. 1800h: Patient signed out to Dr. Arita pending CT scan, p.o. challenge, and reevaluation. Quality Measures none Orders Category Date Time Status CT Screening NOW Care 02/24/25 15:38 Active EKG (ED ONLY) *Do not use* NOW Care 02/24/25 15:03 Completed Insert IV NOW Care 02/24/25 15:[address] abdomen pelvis w con Stat Exams 02/24/25 15:38 Ordered EKG (ED Only) Stat Exams 02/24/25 15:03 Draft XR chest 2V Stat Exams 02/24/25 15:03 Completed B-Type Natriuretic Peptide Stat Lab 02/24/25 15:44 Completed CBC Stat Lab 02/24/25 15:44 Completed Comprehensive Metabolic Panel Stat Lab 02/24/25 15:44 Completed Drug Screen,Urine Stat Lab 02/24/25 15:44 Completed LDH (Lactate Dehydrogenase) Stat Lab 02/24/25 15:44 Completed Lactate (Lactic Acid) Stat Lab 02/24/25 15:44 Results Lipase Stat Lab 02/24/25 15:44 Completed Magnesium Stat Lab 02/24/25 15:44 Completed Partial Thromboplastin Time Stat Lab 02/24/25 15:44 Completed Procalcitonin Stat Lab 02/24/25 15:44 Completed Prothrombin Time with INR Stat Lab 02/24/25 15:44 Completed Troponin I Stat Lab 02/24/25 15:44 Completed Urinalysis Stat Lab 02/24/25 15:44 Completed Dicyclomine Inj [Bentyl Inj] Med 02/24/25 15:39 Discontinued 20 mg IM X1 ONE Ketorolac Inj [Toradol Inj] Med 02/24/25 15:41 Discontinued 15 mg IVP X1 ONE Lidocaine 2% Viscous [Xylocaine 2% Viscous] Med 02/24/25 15:41 Discontinued 15 ml PO X1 ONE Pantoprazole Inj [Protonix Inj] Med 02/24/25 15:39 Discontinued 40 mg IVP X1 ONE Sodium Chloride 0.9% 1000 ml [Ns] 1,000 ml Med 02/24/25 15:41 Discontinued IV 999 mls/hr mg Hyd/Al Hyd/Rashad Susp [Maalox Susp] Med 02/24/25 15:39 Discontinued 30 ml PO X1 ONE Vital Signs Vital signs: Vital Signs Temperature 98.5 F 02/24/25 14:47 Pulse Rate 68 02/24/25 14:47 Respiratory Rate 18 02/24/25 14:47 Blood Pressure 126/64 02/24/25 14:47 Pulse Oximetry (%) 99 02/24/25 14:47 Oxygen Delivery Method Room Air 02/24/25 14:47 Pulse ox is 99% on room air which is adequate. Abdominal Pain MDM MDM Narrative MDM Narrative:: Dianelys Trejo am scribing for and in the presence of Dr. Garner. Patient data External records reviewed:: [facility] previous records (I reviewed ED visit on 10/09/2024 ) Clinical information provided by:: patient and family Social determinants that could affect healthcare access:: none Patient has the following chronic illnesses:: chronic pain on Fentanyl patches, hypertension, diabetes, gastritis How is presenting disease/condition affected by chronic disease/condition?: exacerbated by Evaluation data The following diagnostics were reviewed and interpreted by me:: lab results, radiology exam(s) and EKG tracing(s) (02/24/2025 @ 15:30h. NSR, rate 73, no STEMI) Lab and/or radiology exams considered but not ordered:: None Interpretation Summary: Ordering Physician: Aj Moss PA-C Date of Service: 02/24/25 Procedure(s): XR chest 2V Accession Number(s): [id number] cc: Gwyn Lugo MD; Aj Moss PA-C~ Examination: PA lateral chest 2 views TECHNIQUE: Upright PA lateral chest 2 views Date and time: February 24, 2025, 1510 hours INDICATIONS: Chest pain beginning 2 days ago. FINDINGS: Normal heart size Retrocardiac gastric hernia. Ectatic thoracic aorta. No pneumonia or pulmonary edema IMPRESSION: No pneumonia or pulmonary edema Dictated By: Gwyn Lugo MD Signed By: <Electronically signed by Gwyn Lugo MD in OV> 02/24/25 1522 Medications / Prescriptions Medications or Prescriptions considered but not ordered:: None Medication administrations:: Medication Administration History Discontinued Medications Al Hydrox/Mg Hydrox/Simethicone (Mg Hyd/Al Hyd/Rashad (Maalox Reg) Susp 30 Ml Udc) 30 ml PO X1 ONE Stop: 02/24/25 15:40 Last Admin: 02/24/25 15:48 Dose: 30 ml Documented By: OA Dicyclomine HCl (Dicyclomine Inj 10 Mg/Ml 2ml Amp) 20 mg IM X1 ONE Stop: 02/24/25 15:40 Sodium Chloride (Ns) 1,000 mls @ 999 mls/hr IV .Q1H1M ONE Stop: 02/24/25 16:41 Ketorolac Tromethamine (Ketorolac Inj 30 Mg/Ml Vial) 15 mg IVP X1 ONE Stop: 02/24/25 15:42 Lidocaine HCl (Lidocaine Viscous 2% 15 Ml Udc) 15 ml PO X1 ONE Stop: 02/24/25 15:42 Pantoprazole Sodium (Pantoprazole Inj 40 Mg Vial) 40 mg IVP X1 ONE Stop: 02/24/25 15:40 See above Consultations Consultation(s) initiated? (list below): No Diagnosis Differential diagnosis abdominal pain: abdominal pain, gastroenteritis and other (Viral illness ) Most likely diagnosis given after review of the tests above:: Epigastric abdominal pain, query gastritis, query PUD Admission Indicated Admission indicated?: not indicated Admission Request Was there a request for admission?: No Disposition Plan Disposition Plan: other (specify) (Signed out to Dr. Arita ) Discharge Plan Prescriptions/Referrals Prescriptions/Med Rec: No Action fentanyl [Duragesic] 1 PATCH patch 72 hour 1 patch TOP Q72H Qty: 0 cetirizine 10 mg Tablet 10 mg PO QDAY Farxiga 5 mg Tablet 5 mg PO QDAY meclizine 25 mg tablet 25 mg PO BID PRN (Reason: dizziness) Qty: 20 0RF ondansetron 4 mg tablet,disintegrating 4 mg PO TID PRN (Reason: nausea and vomiting) 30 Days Qty: 10 2RF scopolamine base [Transderm-Scop] 1 mg over 3 days patch 3 day 1 mg topical .q72 hours PRN (Reason: dizziness or vertigo) Qty: 4 2RF omeprazole 40 mg capsule,delayed release(DR/EC) 40 mg PO QDAY Qty: 30 0RF famotidine 40 mg tablet 40 mg PO .bedtime Qty: 30 0RF benzonatate 200 mg capsule 200 mg PO TID MDD 3 PRN (Reason: Cough) Patient Comments: TAKE 1 CAPSULE BY MOUTH THREE TIMES A DAY NEEDED FOR COUGH amlodipine 2.5 mg tablet 2.5 mg PO QAM Patient Comments: TAKE 1 TABLET BY MOUTH EVERY DAY FOR BLOOD PRESSURE acetaminophen 500 mg tablet 500 mg PO Q6HR PRN (Reason: Pain) omeprazole 40 mg capsule,delayed release(DR/EC) 40 mg PO QDAY Patient Comments: TAKE 1 CAPSULE BY MOUTH EVERY DAY 30 MIN BEFORE MEALS FOR STOMACH sucralfate [Carafate] 100 mg/mL suspension 5 ml PO QID Qty: 414 0RF Rx Instructions: swish in mouth and swallow; use after food/drink acetaminophen [Acetaminophen Pain Relief] 500 mg tablet 500 mg PO Q6H PRN (Reason: fever) Qty: 20 0RF pantoprazole [Protonix] 40 mg tablet,delayed release (DR/EC) 40 mg PO QDAY Qty: 20 0RF polyethylene glycol 3350 [Miralax] 17 gram/dose powder 4 g PO QDAY Qty: 238 0RF Referrals: No Primary/Family,Physician [Primary Care Provider] - In 1 week Problem List Clinical Impression: Abdominal pain, epigastric Patient/Caregiver Discharge Instructions Print Language: Sekou
[2025-02-24] MEDS: MG HYD/AL HYD/SIME (Maalox Reg) SUSP 30 ML UDC PO (15:48)
[2025-02-24 15:55] LABS: Collection Type, Urine Clean Catch; Squamous Epithelial Cell,Urine 0 /hpf (0-5)
[2025-02-24 15:56] LABS: Lactate (Lactic Acid) 2.2 mMol/L (0.4-2.0)
[2025-02-24 15:59] LABS: Basophils # (Auto) 0.0 Thou/mm3 (0.0-0.2); Basophils % (Auto) 1 % (0-2.5); Eosinophils # (Auto) 0.2 Thou/mm3 (0.0-0.5); Eosinophils % (Auto) 3 % (0-10); Hematocrit 39.8 % (41.0-53.0); Hemoglobin 12.7 g/dL (13.5-16.0); Immature Granulocytes Auto 0.01 Thou/mm3 (0.00-0.00); Lymphocytes # (Auto) 2.1 Thou/mm3 (1.0-4.8); Lymphocytes % (Auto) 30 % (10-50); Mean Corpuscular HGB Conc 31.9 g/dl (31.0-37.0); Mean Corpuscular Hemoglobin 28.0 pg (25.0-35.0); Mean Corpuscular Volume 88 fL (80-100); Monocytes # (Auto) 0.4 Thou/mm3 (0.0-0.8); Monocytes % (Auto) 5 % (0-12); Neutrophils # (Auto) 4.3 Thou/mm3 (1.8-7.7); Neutrophils % (Auto) 61 % (37-80); Nucleated Red Blood Cell # 0.00 Thou/mm3 (0.00-0.00); Nucleated Red Blood Cell % 0 /100 WBC (0); Platelet Count 252 Thou/mm3 (140-440); RDW Standard Deviation 52.8 fL (35.1-43.9); Red Blood Count 4.54 Miln/mm3 (4.50-5.90); White Blood Count 7.1 Thou/mm3 (3.8-10.6)
[2025-02-24 16:03] LABS: Bilirubin,Urine Negative (Negative); Blood,Urine Negative (Negative); Clarity,Urine Clear (Clear/Hazy); Color,Urine Lt-Yellow (Lt Yel-Yel); Glucose, Urine 4+ (Negative); Ketones,Urine Negative (Negative); Leukocyte Esterase,Urine Negative (Negative); Nitrite,Urine Negative (Negative); PH,Urine 8.0 (5.0-7.0); Protein,Urine Negative (Neg - Trace); RBC,Urine 1 /hpf (0-3); Specific Gravity,Urine 1.022 (1.001-1.035); Urobilinogen,Urine Negative mg/dL (0.0-1.0); WBC,Urine < 1 /hpf (0-5)
[2025-02-24 16:15] LABS: Amphetamine/Methamp Scrn,U Negative (Negative); Barbiturate Screen,Urine Negative (Negative); Benzodiazepines Screen,Urine Negative (Negative); Benzoylecgonine Screen, Ur Negative (Negative); Fentanyl Screen,Urine Positive (Negative); Opiate Screen,Urine Positive (Negative); THC Screen,Urine Negative (Negative)
[2025-02-24 16:17] LABS: B-Type Natriuretic Peptide 91 pg/mL (0-100)
[2025-02-24 16:29] LABS: Alanine Aminotransferase 8 U/L (10-49); Albumin, Serum 4.5 gm/dL (3.4-4.8); Albumin/Globulin Ratio 1.3 (1.2-2.2); Alkaline Phosphatase 97 U/L (46-116); Anion Gap 9 (7-16); Aspartate Amino Transferase 18 U/L (0-34); BUN/Creatinine Ratio 8 Ratio (12-20); Bilirubin,Total 0.4 mg/dL (0.3-1.2); Blood Urea Nitrogen 11 mg/dL (9-23); Calcium 10.1 mg/dL (8.3-10.6); Calcium (Corrected) 10.1 mg/dL (8.5-10.1); Carbon Dioxide 30.2 mMol/L (20.0-31.0); Chloride 105 mMol/L (98-107); Creatinine (Component) 1.3 mg/dL (0.6-1.3); Estimated Creatinine Clearance 30.8 mL/min (>60); Globulin 3.5 gm/dL (2.3-3.5); Glucose 157 mg/dL (74-106); LDH (Lactate Dehydrogenase) 189 U/L (120-246); Lipase 18 U/L (12-53); Magnesium 1.9 mg/dL (1.6-2.6); Osmolality,Calculated 289 (275-295); Potassium 4.4 mMol/L (3.4-5.1); Procalcitonin < 0.04 ng/ml (0.0-0.49); Sodium 144 mMol/L (136-145); Total Protein 8.0 gm/dL (5.7-8.2); Troponin I < 0.020 ng/mL (0.0-0.045); eGFR 53 See Note
[2025-02-24 16:44] LABS: INR 0.9 (0.9-1.3); Partial Thromboplastin Time 20.3 Seconds (22.0-36.0); Prothrombin Time 10.3 Seconds (9.0-12.2)
[2025-02-24 18:31] VITALS: BP 129/60; PULSE 74; RESP 18; TEMP 36.7; O2SAT 97
--- NOTE | 2025-02-24 18:34 | PD.EDADDENDU ---
Emergency Room Addendum <Marti Garcia - Last Filed: 02/24/25 21:13> Addendum Narrative: 1800: Care assumed from Dr. Hagan, the previous shift emergency physician. Past medical, surgical, social and family history reviewed. Vitals and home medications reviewed. Results and treatment plan discussed. I will assume the care of the patient at this time and will follow the patient, pending CT abdomen pelvis. Please refer to the emergency department record for history and examination from initial visit. RADIOLOGY RESULTS: [facility] Report Signed Patient: KENDRA CAMPOS. Record#: [id number] Birthdate: 1935 Age/Sex: 89 / M Location: [facility] Attending Dr: Ordering Physician: Mode Arita DO Date of Service: 02/24/25 Procedure(s): CT abdomen pelvis wo con Accession Number(s): [id number] cc: Gwyn Lugo MD; NO PRIMARY/FAMILY,PHYSICIAN; Mode Arita DO~ Examination: CT abdomen and pelvis without contrast. Coronal 3-D reconstructions. Sagittal 2-D reconstructions. Date and time of exam:February 24, 2025, 2006 hours, comparison October 09, 2024 INDICATIONS: Nausea vomiting abdominal pain beginning 2 days ago. CTDI: vol (mGy): 51.8. DLP: (mGycm): 273. Technique: Axial images of the abdomen have been obtained, 3 mm slice thickness Intravenous contrast material has not been administered. Low dose protocols were performed. One or more of the following dose reduction techniques were used; automated exposure control, adjustment of the mA and/or KV according to patient size, use of iterative reconstruction technique. Findings: Mild enlargement cardiac contour. No focal liver lesions Absent gallbladder. Spleen not enlarged. Atrophic pancreas. No adrenal mass. 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 Hagan, the previous shift emergency physician. Past medical, surgical, social and family history reviewed. Vitals and home medications reviewed. Results and treatment plan discussed. I will assume the care of the patient at this time and will follow the patient, pending CT abdomen pelvis. Please refer to the emergency department record for history and examination from initial visit. RADIOLOGY RESULTS: [facility] Report Signed Patient: KENDRA CAMPOS. Record#: [id number] Birthdate: 1935 Age/Sex: 89 / M Location: [facility] Attending Dr: Ordering Physician: Mode Arita DO Date of Service: 02/24/25 Procedure(s): CT abdomen pelvis wo con Accession Number(s): [id number] cc: Gwyn Lugo MD; NO PRIMARY/FAMILY,PHYSICIAN; Mode Arita DO~ Examination: CT abdomen and pelvis without contrast. Coronal 3-D reconstructions. Sagittal 2-D reconstructions. Date and time of exam:February 24, 2025, 2006 hours, comparison October 09, 2024 INDICATIONS: Nausea vomiting abdominal pain beginning 2 days ago. CTDI: vol (mGy): 51.8. DLP: (mGycm): 273. Technique: Axial images of the abdomen have been obtained, 3 mm slice thickness Intravenous contrast material has not been administered. Low dose protocols were performed. One or more of the following dose reduction techniques were used; automated exposure control, adjustment of the mA and/or KV according to patient size, use of iterative reconstruction technique. Findings: Mild enlargement cardiac contour. No focal liver lesions Absent gallbladder. Spleen not enlarged. Atrophic pancreas. No adrenal mass. No renal or ureteral calculi, no hydronephrosis Abdominal aortic calcification no aneurysmal dilatation No pericecal inflammatory change Minimal fluid distended small bowel loops No diverticulitis Urinary bladder intact Transverse posterior dimension 4.4 cm Moderate osteopenia Moderate degenerative disc disease L4-L5 Left hip hemiarthroplasty with satisfactory alignment IMPRESSION: Atrophic pancreas No renal or adrenal calculi, no hydronephrosis Mild small bowel ileus No CT findings of appendicitis diverticulitis or bowel obstruction Dictated By: Gwyn Lugo MD Signed By: <Electronically signed by Gwyn Lugo MD in OV> 02/24/252109 CT scan done of the abdomen and pelvis without contrast came back showing no evidence of intra-abdominal inflammation or bowel obstruction. I reviewed the patient's workup including lab work which was essentially unremarkable. Vital signs are stable. Patient is in stable condition for discharge to follow-up with regular doctor. Continue current medications. Return to ER as needed or if condition worsens.
[2025-02-24 18:53] LABS: Reflex Lactate? Y
[2025-02-24 19:48] LABS: Lactic Acid, 3 HR 1.6 mMol/L (0.4-2.0)
--- NOTE | 2025-02-24 20:08 | XR_ITS ---
Examination: CT abdomen and pelvis without contrast. Coronal 3-D reconstructions. Sagittal 2-D reconstructions. Date and time of exam:February 24, 2025, 2006 hours, comparison October 09, 2024 INDICATIONS: Nausea vomiting abdominal pain beginning 2 days ago. CTDI: vol (mGy): 51.8. DLP: (mGycm): 273. Technique: Axial images of the abdomen have been obtained, 3 mm slice thickness Intravenous contrast material has not been administered. Low dose protocols were performed. One or more of the following dose reduction techniques were used; automated exposure control, adjustment of the mA and/or KV according to patient size, use of iterative reconstruction technique. Findings: Mild enlargement cardiac contour. No focal liver lesions Absent gallbladder. Spleen not enlarged. Atrophic pancreas. No adrenal mass. No renal or ureteral calculi, no hydronephrosis Abdominal aortic calcification no aneurysmal dilatation No pericecal inflammatory change Minimal fluid distended small bowel loops No diverticulitis Urinary bladder intact Transverse posterior dimension 4.4 cm Moderate osteopenia Moderate degenerative disc disease L4-L5 Left hip hemiarthroplasty with satisfactory alignment IMPRESSION: Atrophic pancreas No renal or adrenal calculi, no hydronephrosis Mild small bowel ileus No CT findings of appendicitis diverticulitis or bowel obstruction
[2025-02-24] MEDS: KETOROLAC INJ 30 MG/ML VIAL 15 MG IVP (20:09)
[2025-02-24] MEDS: LIDOCAINE VISCOUS 2% 15 ML UDC PO (20:09)
[2025-02-24] MEDS: SODIUM CHLORIDE 0.9% 1000 ML 1,000 ML 999 ML IV (20:16)
[2025-02-24] MEDS: DICYCLOMINE INJ 10 MG/ML 2ML AMP 20 MG IM (20:17)
[2025-02-24 22:24] VITALS: RESP 12
== END 2025-02-24 22:25 | disposition home or self-care (01) ==
PROVIDERS: Physician Assistant; Emergency Provider Family Medicine
DX: R10.13 Epigastric pain (principal); K56.7 Ileus, unspecified
CPT/HCPCS: 36415; 71046; 74176; 80053; 80307; 81001; 83605; 83615; 83690; 83735; 83880; 84145; 84484; 85025; 85610; 85730; 93005; 96361; 96374; 99283; J0500; J1885; J2470; J3490; J7030; A9270

== ENCOUNTER 2025-05-11 11:53 | Emergency (ER) | payer MEDICARE, MEDICAID, SELFPAY ==
[2025-05-11 12:11] VITALS: BP 141/67; PULSE 76; RESP 18; TEMP 36.6; O2SAT 97; BMI 22.6
--- NOTE | 2025-05-11 12:20 | XR_ITS ---
EXAMINATION: Sacrum and coccyx 3 views TECHNIQUE: AP inclined AP lateral sacrum and coccyx 3 views INDICATIONS: Nonhealing bedsore posterior to the sacrum 2 months FINDINGS: Severe osteopenia Adequate alignment sacrococcygeal vertebral bodies No zach cortical bone destruction IMPRESSION: No zach cortical bone destruction involving the sacrum or coccyx
--- NOTE | 2025-05-11 12:21 | PD.EDRME ---
Rapid Medical Screening Exam [facility] Arrival date/time: 05/11/25 11:53 89-year-old male with no known medical history presents to the emergency room with a chief complaint of tenderness and pain to the coccyx area x 1 week. I have greeted and performed a focused initial assessment of this patient. A comprehensive ED assessment and evaluation of the patient, analysis of all test results, and completion of the medical decision making process will be conducted by additional ED providers. Chief Complaint: General Adult/Misc Complain Time Seen by Provider: 05/11/25 12:14 Vital signs: Vital Signs Temperature 97.9 F 05/11/25 12:11 Pulse Rate 76 05/11/25 12:11 Respiratory Rate 18 05/11/25 12:11 Blood Pressure 141/67 H 05/11/25 12:11 Pulse Oximetry (%) 97 05/11/25 12:11 Oxygen Delivery Method Room Air 05/11/25 12:11 Vital signs reviewed by provider: Yes Exam: Patient has some erythema and blanching to the gluteal cleft and coccyx area Patient has a soft nontender abdomen Clinical Impression: Pressure ulcer/osteomyelitis
[2025-05-11] MEDS: ONDANSETRON ODT 4 MG TABRAP PO (12:41)
[2025-05-11] MEDS: HYDROcodone/APAP 5/325 TABLET 1 TAB PO (12:41)
[2025-05-11 13:30] LABS: Lactate (Lactic Acid) 1.7 mMol/L (0.4-2.0)
[2025-05-11 13:40] LABS: Basophils # (Auto) 0.0 Thou/mm3 (0.0-0.2); Basophils % (Auto) 0 % (0-2.5); Eosinophils # (Auto) 0.7 Thou/mm3 (0.0-0.5); Eosinophils % (Auto) 7 % (0-10); Hematocrit 39.7 % (41.0-53.0); Hemoglobin 12.7 g/dL (13.5-16.0); Immature Granulocytes Auto 0.02 Thou/mm3 (0.00-0.00); Lymphocytes # (Auto) 3.0 Thou/mm3 (1.0-4.8); Lymphocytes % (Auto) 30 % (10-50); Mean Corpuscular HGB Conc 32.0 g/dl (31.0-37.0); Mean Corpuscular Hemoglobin 28.7 pg (25.0-35.0); Mean Corpuscular Volume 90 fL (80-100); Monocytes # (Auto) 0.7 Thou/mm3 (0.0-0.8); Monocytes % (Auto) 7 % (0-12); Neutrophils # (Auto) 5.5 Thou/mm3 (1.8-7.7); Neutrophils % (Auto) 55 % (37-80); Nucleated Red Blood Cell # 0.00 Thou/mm3 (0.00-0.00); Nucleated Red Blood Cell % 0 /100 WBC (0); Platelet Count 274 Thou/mm3 (140-440); RDW Standard Deviation 52.1 fL (35.1-43.9); Red Blood Count 4.42 Miln/mm3 (4.50-5.90); White Blood Count 9.9 Thou/mm3 (3.8-10.6)
[2025-05-11 13:54] LABS: Sed Rate (ESR) 28 mm/hr (0-20)
[2025-05-11 14:05] LABS: INR 1.0 (0.9-1.3); Partial Thromboplastin Time 28.3 Seconds (22.0-36.0); Prothrombin Time 10.2 Seconds (9.0-12.2)
[2025-05-11 14:27] LABS: Alanine Aminotransferase 13 U/L (10-49); Albumin, Serum 4.8 gm/dL (3.4-4.8); Albumin/Globulin Ratio 1.4 (1.2-2.2); Alkaline Phosphatase 99 U/L (46-116); Anion Gap 11 (7-16); Aspartate Amino Transferase 25 U/L (0-34); BUN/Creatinine Ratio 10 Ratio (12-20); Bilirubin,Total 0.5 mg/dL (0.3-1.2); Blood Urea Nitrogen 12 mg/dL (9-23); C-Reactive Protein < 0.5 mg/dL (0.0-0.9); Calcium 9.5 mg/dL (8.3-10.6); Calcium (Corrected) 9.5 mg/dL (8.5-10.1); Carbon Dioxide 27.2 mMol/L (20.0-31.0); Chloride 106 mMol/L (98-107); Creatinine (Component) 1.2 mg/dL (0.6-1.3); Estimated Creatinine Clearance 32.1 mL/min (>60); Globulin 3.4 gm/dL (2.3-3.5); Glucose 191 mg/dL (74-106); Osmolality,Calculated 291 (275-295); Potassium 4.7 mMol/L (3.4-5.1); Procalcitonin < 0.04 ng/ml (0.0-0.49); Sodium 144 mMol/L (136-145); Total Protein 8.2 gm/dL (5.7-8.2); eGFR 59 See Note
--- NOTE | 2025-05-11 18:32 | PD.EDSKIN ---
ED Skin Abcess FB-RME/HPI General Chief complaint: General Adult/Misc Complain Stated complaint: REDNESS, SM CUT , PAIN TO COCCYX X 3-4 MO Time Seen by Provider: 05/11/25 12:14 Arrival date/time: 05/11/25 11:53 RME / HPI RME / HPI narrative: 05/11/25 11:53 89-year-old male with no known medical history presents to the emergency room with a chief complaint of tenderness and pain to the coccyx area x 1 week. I have greeted and performed a focused initial assessment of this patient. A comprehensive ED assessment and evaluation of the patient, analysis of all test results, and completion of the medical decision making process will be conducted by additional ED providers. DR. WALLER MAIN ED EVALUATION: Patient presents by daughter with chronic perineal rash present for approximately 3-4 months, waxing and waning, more recently became more tender, impairing patient's ability to ambulate or sit. No reported nausea, vomiting, fever, or chills. No urinary symptoms. PMH: Hypercholesterolemia, Hypertension, Gall Bladder Disease, Gastroesophageal Reflux Disease, Arthritis, Cataracts, Diabetes Mellitus Type 2 PSH: Hip Surgery, Cholecystectomy Allergies: Pregabalin, Shellfish Social: Non-smoker, Non-drinker, No illicit drug abuse Exam: Patient has some erythema and blanching to the gluteal cleft and coccyx area Patient has a soft nontender abdomen Impression: Pressure ulcer/osteomyelitis Related Data Home Medications ?Medication ?Instructions ?Recorded ?Confirmed fentanyl 75 mcg/hr transdermal 1 patch TOP Q72H PAIN #0 patches 11/19/15 11/30/22 patch (Duragesic) cetirizine 10 mg tablet 10 mg PO QDAY 03/29/22 11/30/22 dapagliflozin propanediol 5 mg 5 mg PO QDAY 03/29/22 11/30/22 tablet (Farxiga) acetaminophen 500 mg tablet 500 mg PO Q6HR PRN Pain 11/26/22 11/30/22 amlodipine 2.5 mg tablet 2.5 mg PO QAM 11/26/22 11/30/22 benzonatate 200 mg capsule 200 mg PO TID PRN Cough 11/26/22 11/30/22 omeprazole 40 mg capsule,delayed 40 mg PO QDAY 11/30/22 11/30/22 release Previous Rx's ?Medication ?Instructions ?Recorded sucralfate 100 mg/mL oral 5 ml PO QID #414 mL 03/15/24 suspension (Carafate) acetaminophen 500 mg tablet 500 mg PO Q6H PRN fever #20 tabs 08/10/24 (Acetaminophen Pain Relief) famotidine 40 mg tablet 40 mg PO .bedtime #30 tabs 09/15/24 meclizine 25 mg tablet 25 mg PO BID PRN dizziness #20 tabs 09/15/24 omeprazole 40 mg capsule,delayed 40 mg PO QDAY #30 caps 09/15/24 release ondansetron 4 mg disintegrating 4 mg PO TID PRN nausea and 09/15/24 tablet vomiting 30 days #10 tabs scopolamine base 1 mg over 3 days 1 mg topical .q72 hours PRN 09/15/24 transdermal patch (Transderm-Scop) dizziness or vertigo #4 ea pantoprazole 40 mg tablet,delayed 40 mg PO QDAY #20 tabs 10/09/24 release (Protonix) polyethylene glycol 3350 17 4 g PO QDAY #238 grams 10/09/24 gram/dose oral powder (Miralax) Allergies Allergy/AdvReac Type Severity Reaction Status Date / Time pregabalin (From Lyrica) Allergy Severe Hives Verified 05/11/25 11:58 shellfish derived Allergy Severe Hives Verified 05/11/25 11:58 Review of Systems Review of Systems Systems Reviewed: All systems reviewed, normal except as documented Past Medical History Past Medical History CARDIAC: Positive Hypercholesterolemia and Hypertension GASTROINTESTINAL: Positive Gall Bladder Disease and Gastroesophageal Reflux Disease MUSCULOSKELETAL: Positive Arthritis ENT: Positive Cataracts ENDOCRINE: Positive Diabetes Mellitus Type 2 ED Exam Narrative Physical exam: GEN. APPEARANCE: The patient is alert awake oriented X-3 frail appearing, in moderate distress c/o painful buttock/perianal region. Patient has good eye contact. Patient is cooperative. VITALS: All vitals were reviewed and the pulse ox is 97%, which is normal according to my interpretation HEENT: Normocephalic, atraumatic and nontender. Pupils are equal and reactive. Oral mucosa is moist. NECK: Supple, nontender, no meningismus, no JVD. There is no thyromegaly and no lymphadenopathy. CHEST: Nontender on palpation no deformity and no crepitus. CARDIOVASCULAR: Heart regular rhythm, no murmur or gallop rub or extra beats. LUNGS: Clear to auscultation bilaterally with symmetrical chest rise. No laboring tachypnea or wheezing. No intercostal subcostal retraction. No rales and no rhonchi. ABDOMEN: Soft, flat, nontender to palpation, no guarding or rebound tenderness. There are no abnormal masses palpated. No pulsatile masses or bruits. Active and normal bowel sounds. EXTREMITIES: Normal inspection and palpation. No edema. No cyanosis. Patient is able to move all 4 extremities well SKIN: Warm and dry, no rashes noted. MUSCULOSKELETAL: No lumbar or midline bony tenderness. There is no CVA tenderness. No paraspinal muscle spasm or tenderness. BACK/BUTTOCK: Skin breakdown about the gluteal cleft extending towards the rectum, superficial ulcerations, overlying erythema and exquisitely TTP, diffusely extending to rectal region. NEURO: Cranial nerves II through XII grossly intact. There are no focal neurologic deficits noted. GCS is 15 PSYCHIATRIC: Patient is in normal mood and affect, cooperative. LYMPHATICS: No major lymphadenopathy noted. Course Quality Measures none Orders Category Date Time Status XR sacrum coccyx min 2V Stat Exams 05/11/25 12:20 Completed Blood Culture (Lab) Stat Lab 05/11/25 13:00 Received CBC Stat Lab 05/11/25 13:00 Completed CMP [Comprehensive Metabolic Panel] Stat Lab 05/11/25 13:00 Completed CRP [C-Reactive Protein] Stat Lab 05/11/25 13:00 Completed ESR [Sed Rate (ESR)] Stat Lab 05/11/25 13:00 Completed Lactic Acid [Lactate (Lactic Acid)] Stat Lab 05/11/25 13:00 Completed PT [Prothrombin Time with INR] Stat Lab 05/11/25 13:00 Completed PTT [Partial Thromboplastin Time] Stat Lab 05/11/25 13:00 Completed Procalcitonin Stat Lab 05/11/25 13:00 Completed Ampicillin/Sulbac Inj [Unasyn Inj] 3 gm Med 05/11/25 18:38 Discontinued Sodium Chloride 0.9% (Pop) [NS 0.9% mini bag] 100 ml IV X1 HYDROcodone*/APAP 5/325 [[place] 5/325] Med 05/11/25 12:20 Discontinued 1 tab PO X1 ONE Morphine* Inj Med 05/11/25 18:39 Discontinued 4 mg IVP X1 ONE Ondansetron Odt [Zofran Odt] Med 05/11/25 12:20 Discontinued 4 mg PO X1 ONE Prochlorperazine Inj [Compazine Inj] Med 05/11/25 18:38 Discontinued 2.5 mg IV X1 ONE Vital Signs Vital signs: Vital Signs Temperature 97.9 F 05/11/25 12:11 Pulse Rate 76 05/11/25 12:11 Respiratory Rate 18 05/11/25 12:11 Blood Pressure 141/67 H 05/11/25 12:11 Pulse Oximetry (%) 97 05/11/25 12:11 Oxygen Delivery Method Room Air 05/11/25 12:11 Skin / Abscess / Foreign Body MDM Narrative MDM Narrative:: Scribe Attestation: IDulce, norma scribing for and in the presence of Dr. Waller. Provider Notation: Although this document has been carefully reviewed, there may still be some phonetic and other typographical errors. These errors are purely grammatical due to imperfections in the software program and should not be construed in any way to compromise the substance of the patient's medical care during this visit. Patient presents by daughter with chronic perineal rash present for approximately 3-4 months, waxing and waning, more recently became more tender, impairing patient's ability to ambulate or sit. No reported nausea, vomiting, fever, or chills. Please see PE findings. Laboratory findings including CBC demonstrate WBC of 9.9, patient with stable anemia with hemoglobin of 12.7. No left shift, no thrombocytopenia or associated bandemia. Serum chemistries essentially unremarkable with the exception of mildly elevated blood sugar of 191. UA demonstrates glucosuria only. Coagulation panel normal. Patient treated with IV fluids, imperic ABX, and low-dose narcotic analgesics for perineal cellulitis likely complicated by grant. Patient non-toxic and x-rays obtained without evidence or osteomyelitits or olinda gangrene. Will treat with topical Mycolog, PO Augmentin, [place], and Viscous Lidocaine PRN for symptomatic relief. Close F/U with PMD advised as patient may need F/U wound care. Patient data External records reviewed:: [facility] previous records (Reviewed prior ED records from 02/24/25. Patient was seen for Abdominal pain, epigastric.) Clinical information provided by:: patient and family (Daughter) Social determinants that could affect healthcare access:: none Patient has the following chronic illnesses:: Hypercholesterolemia, Hypertension, Gall Bladder Disease, Gastroesophageal Reflux Disease, Arthritis, Cataracts, Diabetes Mellitus Type 2 How is presenting disease/condition affected by chronic disease/condition?: exacerbated by Evaluation data The following diagnostics were reviewed and interpreted by me:: lab results and radiology exam(s) Lab and/or radiology exams considered but not ordered:: None Interpretation Summary: RADIOLOGY Sacrum & Coccyx X-Ray: FINDINGS: Severe osteopenia Adequate alignment sacrococcygeal vertebral bodies No zach cortical bone destruction IMPRESSION: No zach cortical bone destruction involving the sacrum or coccyx Medications / Prescriptions Medications or Prescriptions considered but not ordered:: None Medication administrations:: Medication Administration History Discontinued Medications Hydrocodone Bitart/Acetaminophen (Hydrocodone/Apap 5/325 Tablet) 1 tab PO X1 ONE Stop: 05/11/25 12:21 Last Admin: 05/11/25 12:41 Dose: 1 tab Documented By: LENIN Ampicillin Sodium/Sulbactam (Sodium 3 gm/ Sodium Chloride) 100 mls @ 200 mls/hr IV X1 ONE Stop: 05/11/25 18:39 Last Infusion: 05/11/25 20:04 Dose: Infused Documented By: Admin: 05/11/25 19:30 Dose: 200 mls/hr Documented By: AMBER Morphine Sulfate (Morphine Sulf Inj 4 Mg/Ml Vial) 4 mg IVP X1 ONE Stop: 05/11/25 18:40 Last Admin: 05/11/25 19:30 Dose: 4 mg Documented By: AMBER Ondansetron HCl (Ondansetron Odt 4 Mg Tabrap) 4 mg PO X1 ONE; Protocol Stop: 05/11/25 12:21 Last Admin: 05/11/25 12:41 Dose: 4 mg Documented By: LENIN Prochlorperazine Edisylate (Prochlorperazine Inj 5 Mg/Ml Vial 2 Ml) 2.5 mg IV X1 ONE; Protocol Stop: 05/11/25 18:39 Last Admin: 05/11/25 19:29 Dose: 2.5 mg Documented By: CB See above if any Consultations Consultation(s) initiated? (list below): No Diagnosis Skin/Abscess Differential Diagnosis: abscess of skin or subcutaneous tissue, viral exanthem, allergic reaction to drug, cellulitis and contact dermatitis Most likely diagnosis given after review of the tests above:: Cellulitis of Perineum Admission Indicated Admission indicated?: not indicated Explain why admission is indicated or not indicated:: Patient does not meet admission criteria Admission Request Was there a request for admission?: No Disposition Plan Disposition Plan: Discharge Discharge Attestation Discharge Attestation: The patient and all family members were given an opportunity to ask questions and understood the discharge instructions. Discharge instructions specifically effects, indications for sooner follow up or return to the emergency department, and the expected course of current diagnosis. Patient condition: Stable Discharge Plan Plan Patient Disposition: HOME (Self Care) Discharge Disposition comment: STABLE Prescriptions/Referrals Prescriptions/Med Rec: No Action fentanyl [Duragesic] 1 PATCH patch 72 hour 1 patch TOP Q72H Qty: 0 cetirizine 10 mg Tablet 10 mg PO QDAY Farxiga 5 mg Tablet 5 mg PO QDAY meclizine 25 mg tablet 25 mg PO BID PRN (Reason: dizziness) Qty: 20 0RF ondansetron 4 mg tablet,disintegrating 4 mg PO TID PRN (Reason: nausea and vomiting) 30 Days Qty: 10 2RF scopolamine base [Transderm-Scop] 1 mg over 3 days patch 3 day 1 mg topical .q72 hours PRN (Reason: dizziness or vertigo) Qty: 4 2RF omeprazole 40 mg capsule,delayed release(DR/EC) 40 mg PO QDAY Qty: 30 0RF famotidine 40 mg tablet 40 mg PO .bedtime Qty: 30 0RF benzonatate 200 mg capsule 200 mg PO TID MDD 3 PRN (Reason: Cough) Patient Comments: TAKE 1 CAPSULE BY MOUTH THREE TIMES A DAY NEEDED FOR COUGH amlodipine 2.5 mg tablet 2.5 mg PO QAM Patient Comments: TAKE 1 TABLET BY MOUTH EVERY DAY FOR BLOOD PRESSURE acetaminophen 500 mg tablet 500 mg PO Q6HR PRN (Reason: Pain) omeprazole 40 mg capsule,delayed release(DR/EC) 40 mg PO QDAY Patient Comments: TAKE 1 CAPSULE BY MOUTH EVERY DAY 30 MIN BEFORE MEALS FOR STOMACH sucralfate [Carafate] 100 mg/mL suspension 5 ml PO QID Qty: 414 0RF Rx Instructions: swish in mouth and swallow; use after food/drink acetaminophen [Acetaminophen Pain Relief] 500 mg tablet 500 mg PO Q6H PRN (Reason: fever) Qty: 20 0RF pantoprazole [Protonix] 40 mg tablet,delayed release (DR/EC) 40 mg PO QDAY Qty: 20 0RF polyethylene glycol 3350 [Miralax] 17 gram/dose powder 4 g PO QDAY Qty: 238 0RF Referrals: Leanne Serna PA-C [Primary Care Provider, Family Practice] - In 1 week Problem List Clinical Impression: Cellulitis of perineum Patient/Caregiver Discharge Instructions Print Language: Sekou Stand Alone Forms: Leslee Award Info., Patient Portal Info Letter
[2025-05-11] MEDS: PROCHLORPERAZINE INJ 5 MG/ML VIAL 2 ML 2.5 MG IV (19:29)
[2025-05-11] MEDS: MORPHINE SULF INJ 4 MG/ML VIAL IVP (19:30)
[2025-05-11] MEDS: AMPICILLIN/SULBAC INJ 3 GM in SODIUM CHLORIDE 0.9% (POP) 100 ML IV (19:30)
[2025-05-11 19:33] VITALS: BP 147/73; PULSE 90; RESP 18; TEMP 36.9; O2SAT 98
[2025-05-11 20:40] VITALS: BP 135/76; PULSE 72; RESP 16; TEMP 36.8; O2SAT 98
== END 2025-05-11 20:41 | disposition home or self-care (01) ==
PROVIDERS: Nurse Practitioner Family; Emergency Provider Emergency Medicine; PCP Physician Assistant
DX: L03.315 Cellulitis of perineum (principal); E11.69 Type 2 diabetes mellitus with other specified complication; E78.00 Pure hypercholesterolemia, unspecified; I10 Essential (primary) hypertension; M53.3 Sacrococcygeal disorders, not elsewhere classified
CPT/HCPCS: 36415; 72220; 80053; 83605; 84145; 85025; 85610; 85652; 85730; 86140; 87040; 96365; 96375; 99283; J0295; J0780; J2270; Q0162; A9270

== ENCOUNTER 2025-06-10 07:52 | Emergency (ER) | payer MEDICARE, MEDICAID, SELFPAY ==
[2025-06-10] VITALS (8 sets, daily range): BP systolic 125–148; BP diastolic 63–95; PULSE 79–94; RESP 13–19; TEMP 36.4–36.9; O2SAT 95–100; BMI 23.2
--- NOTE | 2025-06-10 07:55 | EKG_ITS ---
[facility] Test Date: 2025-06-10 Pat Name: KENDRA CAMPOS Department: Room: - Gender: Male Sales Associate: : 1935 Requested By: Ramiro Rosado (TIRE DEBEADER) Order Number: [id number] Reading MD: Ramiro Rosado (TIRE DEBEADER) Measurements Intervals [place] Rate: 82 P: 87 NM: 201 QRS: 25 QRSD: 137 T: 40 QT: 428 QTc: 501 Interpretive Statements SINUS RHYTHM RIGHT BUNDLE BRANCH BLOCK [120+ ms QRS DURATION, UPRIGHT V1, 40+ ms S IN I/aVL/V4/V5/V6] POSSIBLE SEPTAL MYOCARDIAL INFARCTION , OF INDETERMINATE AGE [30 ms Q WAVE IN V1/V2] Compared to ECG 02/24/2025 15:30:35 Myocardial infarct finding now present /store/S0/[id number]
--- NOTE | 2025-06-10 08:07 | XR_ITS ---
Examination: CT brain head without contrast. 2-D sagittal coronal reconstructions Date and time of exam: June 10, 2025, 0856 hours INDICATIONS: Generalized head pain and dizziness beginning 6 days ago CTDI: vol (mGy): 46.1 DLP: (mGycm): 933 Technique: Multiple CT axial sections of the brain have been obtained, 5 mm slice thickness. Contrast has not been administered. 2-D sagittal, coronal reconstructions have been obtained Low dose protocols were performed. One or more of the following dose reduction techniques were used; automated exposure control, adjustment of the mA and/or KV according to patient size, use of iterative reconstruction technique. Findings: No significant ventricular enlargement. Intra-axial or extra-axial hemorrhage density is not seen. No mass effect or midline shift Basal cisterns are not remarkable. Fourth ventricle is midline. Cranial vault intact. Prominent right maxillary sinusitis Impression: Negative for acute hemorrhage, mass effect or midline shift Advise clinical correlation and follow-up accordingly
--- NOTE | 2025-06-10 08:08 | PD.EDRME ---
Rapid Medical Screening Exam RME Arrival date/time: 06/10/25 07:52 89-year-old male presents to department today for complaint of headache nausea and dizziness Chief Complaint: Dizziness Vital signs: Vital Signs Temperature 97.8 F 06/10/25 08:06 Pulse Rate 82 06/10/25 08:06 Respiratory Rate 18 06/10/25 08:06 Blood Pressure 148/69 H 06/10/25 08:06 Pulse Oximetry (%) 97 06/10/25 08:06 Oxygen Delivery Method Room Air 06/10/25 08:06 Vital signs reviewed by provider: Yes Exam: Patient appears to be in pain Clinical Impression: Lab work and imaging ordered
[2025-06-10 08:32] LABS: Basophils # (Auto) 0.0 Thou/mm3 (0.0-0.2); Basophils % (Auto) 0 % (0-2.5); Eosinophils # (Auto) 0.1 Thou/mm3 (0.0-0.5); Eosinophils % (Auto) 1 % (0-10); Hematocrit 35.6 % (41.0-53.0); Hemoglobin 11.9 g/dL (13.5-16.0); Immature Granulocytes Auto 0.02 Thou/mm3 (0.00-0.00); Lymphocytes # (Auto) 1.5 Thou/mm3 (1.0-4.8); Lymphocytes % (Auto) 21 % (10-50); Mean Corpuscular HGB Conc 33.4 g/dl (31.0-37.0); Mean Corpuscular Hemoglobin 28.3 pg (25.0-35.0); Mean Corpuscular Volume 85 fL (80-100); Monocytes # (Auto) 0.6 Thou/mm3 (0.0-0.8); Monocytes % (Auto) 9 % (0-12); Neutrophils # (Auto) 4.7 Thou/mm3 (1.8-7.7); Neutrophils % (Auto) 68 % (37-80); Nucleated Red Blood Cell # 0.00 Thou/mm3 (0.00-0.00); Nucleated Red Blood Cell % 0 /100 WBC (0); Platelet Count 231 Thou/mm3 (140-440); RDW Standard Deviation 45.1 fL (35.1-43.9); Red Blood Count 4.20 Miln/mm3 (4.50-5.90); White Blood Count 6.9 Thou/mm3 (3.8-10.6)
[2025-06-10 08:58] LABS: B-Type Natriuretic Peptide 29 pg/mL (0-100)
[2025-06-10 08:59] LABS: Alanine Aminotransferase < 7 U/L (10-49); Albumin, Serum 4.4 gm/dL (3.4-4.8); Albumin/Globulin Ratio 1.2 (1.2-2.2); Alkaline Phosphatase 106 U/L (46-116); Anion Gap 12 (7-16); Aspartate Amino Transferase 19 U/L (0-34); BUN/Creatinine Ratio 18 Ratio (12-20); Bilirubin,Total 0.4 mg/dL (0.3-1.2); Blood Urea Nitrogen 25 mg/dL (9-23); Calcium 8.8 mg/dL (8.3-10.6); Calcium (Corrected) 8.8 mg/dL (8.5-10.1); Carbon Dioxide 31.0 mMol/L (20.0-31.0); Chloride 92 mMol/L (98-107); Creatinine (Component) 1.4 mg/dL (0.6-1.3); Estimated Creatinine Clearance 26.3 mL/min (>60); Globulin 3.6 gm/dL (2.3-3.5); Glucose 247 mg/dL (74-106); Magnesium 2.1 mg/dL (1.6-2.6); Osmolality,Calculated 282 (275-295); Potassium 3.2 mMol/L (3.4-5.1); Sodium 135 mMol/L (136-145); Total Protein 8.0 gm/dL (5.7-8.2); Troponin I < 0.020 ng/mL (0.0-0.045); eGFR 49 See Note
[2025-06-10] MEDS: ONDANSETRON INJ 2 MG/ML INJ 2 ML 4 MG IVP ×2 (09:06→12:24)
[2025-06-10 09:11] LABS: INR 1.0 (0.9-1.3); Partial Thromboplastin Time 26.5 Seconds (22.0-36.0); Prothrombin Time 10.6 Seconds (9.0-12.2)
--- NOTE | 2025-06-10 09:21 | XR_ITS ---
EXAMINATION: AP chest single view TECHNIQUE: AP portable upright chest single view Date and time: June 10, 2025, 10:13 a.m., comparison February 24, 2025 INDICATIONS: Coughing headache dizziness 1 week FINDINGS: Normal heart size Mild to moderate vascular congestion. No lobar pneumonia. No zach pulmonary edema Prominent osteopenia IMPRESSION: Mild to moderate vascular congestion
--- NOTE | 2025-06-10 09:24 | XR_ITS ---
Examination: CT abdomen and pelvis without contrast. Coronal 3-D reconstructions. Sagittal 2-D reconstructions. Date and time of exam: June 10, 2025, 0923 hours, comparison February 24, 2025 INDICATIONS: Generalized abdominal pain onset today CTDI: vol (mGy): 4.64 DLP: (mGycm): 244 Technique: Axial images of the abdomen have been obtained, 3 mm slice thickness Intravenous contrast material has not been administered. Low dose protocols were performed. One or more of the following dose reduction techniques were used; automated exposure control, adjustment of the mA and/or KV according to patient size, use of iterative reconstruction technique. 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
[2025-06-10] MEDS: ALBUTEROL RT 2.5 MG/3 ML NEBU INH (09:39)
[2025-06-10 09:42] LABS: Lipase 20 U/L (12-53)
[2025-06-10] MEDS: SODIUM CHLORIDE 0.9% 1000 ML 1,000 ML 100 ML IV (09:47)
[2025-06-10] MEDS: MECLIZINE HCL 25 MG TABLET 12.5 MG PO (09:48)
[2025-06-10 11:00] LABS: Collection Type, Urine Clean Catch
[2025-06-10 11:06] LABS: Bilirubin,Urine Negative (Negative); Blood,Urine Negative (Negative); Clarity,Urine Clear (Clear/Hazy); Color,Urine Colorless (Lt Yel-Yel); Culture Indicated,Urine Not Indicated; Glucose, Urine Trace (Negative); Hyaline Casts,Urine < 1 /hpf (0-1); Ketones,Urine Negative (Negative); Leukocyte Esterase,Urine Positive (Negative); Nitrite,Urine Negative (Negative); PH,Urine 6.0 (5.0-7.0); Protein,Urine Negative (Neg - Trace); RBC,Urine 1 /hpf (0-3); Specific Gravity,Urine 1.008 (1.001-1.035); Squamous Epithelial Cell,Urine 1 /hpf (0-5); Urobilinogen,Urine Negative mg/dL (0.0-1.0); WBC,Urine 1 /hpf (0-5)
[2025-06-10] MEDS: MECLIZINE HCL 25 MG TABLET PO (12:24)
--- NOTE | 2025-06-10 12:56 | XR_ITS ---
Examination: Abdomen sonogram, Limited Date and time of exam: June 10, 2025, 1320 hours INDICATIONS: Abdominal pain months Technique: Real-time reynoso scale transabdominal sonographic images of the upper abdomen obtained. Findings: Absent gallbladder Common bile duct 0.70 cm no stones Pancreas obscured by bowel gas Liver 11.3 cm no liver lesions Normal hepatopetal portal venous flow Patent IVC IMPRESSION: Absent gallbladder No common bile duct stones
[2025-06-10] MEDS: ACETAMINOPHEN 325 MG TABLET 650 MG PO (13:21)
[2025-06-10] MEDS: MORPHINE SULF INJ 4 MG/ML VIAL 2 MG IVP (13:22)
[2025-06-10] MEDS: LORazepam 2 MG/ML VIAL 0.5 MG IVP (13:23)
--- NOTE | 2025-06-10 15:08 | PD.EDDIZZY ---
ED Dizzyness RME/HPI General Chief Complaint: Dizziness Stated Complaint: DIZZY, NAUSEA, HEADACHE X 1 WK Time Seen by Provider: 06/10/25 09:02 Arrival date/time: 06/10/25 07:52 Limitations: no limitations RME / HPI RME / HPI Narrative: 06/10/25 07:52 89-year-old male presents to department today for complaint of headache nausea and dizziness DR. HUGHES MAIN ED EVALUATION: History is obtained from granddaughter who helped translate. 88 year old Czech speaking male with past medical history of hypertension, diabetes, gastritis, chronic pain presents to the ED for evaluation of dizziness, nausea, and headache beginning intermittently 1 week ago. Dizziness is described as a room spinning sensation that is improved with keeping his head still and closing eyes. Reports he had been evaluated here before for similar symptoms and presentation today similar to previous. Denies fevers, chills, or a cough. No other complaints reported. Exam: Patient appears to be in pain Impression: Lab work and imaging ordered Related Data Home Medications ?Medication ?Instructions ?Recorded ?Confirmed fentanyl 75 mcg/hr transdermal 1 patch TOP Q72H PAIN #0 patches 11/19/15 11/30/22 patch (Duragesic) cetirizine 10 mg tablet 10 mg PO QDAY 03/29/22 11/30/22 dapagliflozin propanediol 5 mg 5 mg PO QDAY 03/29/22 11/30/22 tablet (Farxiga) acetaminophen 500 mg tablet 500 mg PO Q6HR PRN Pain 11/26/22 11/30/22 amlodipine 2.5 mg tablet 2.5 mg PO QAM 11/26/22 11/30/22 benzonatate 200 mg capsule 200 mg PO TID PRN Cough 11/26/22 11/30/22 omeprazole 40 mg capsule,delayed 40 mg PO QDAY 11/30/22 11/30/22 release Previous Rx's ?Medication ?Instructions ?Recorded sucralfate 100 mg/mL oral 5 ml PO QID #414 mL 03/15/24 suspension (Carafate) acetaminophen 500 mg tablet 500 mg PO Q6H PRN fever #20 tabs 08/10/24 (Acetaminophen Pain Relief) famotidine 40 mg tablet 40 mg PO .bedtime #30 tabs 09/15/24 meclizine 25 mg tablet 25 mg PO BID PRN dizziness #20 tabs 09/15/24 omeprazole 40 mg capsule,delayed 40 mg PO QDAY #30 caps 09/15/24 release ondansetron 4 mg disintegrating 4 mg PO TID PRN nausea and 09/15/24 tablet vomiting 30 days #10 tabs scopolamine base 1 mg over 3 days 1 mg topical .q72 hours PRN 09/15/24 transdermal patch (Transderm-Scop) dizziness or vertigo #4 ea pantoprazole 40 mg tablet,delayed 40 mg PO QDAY #20 tabs 10/09/24 release (Protonix) polyethylene glycol 3350 17 4 g PO QDAY #238 grams 10/09/24 gram/dose oral powder (Miralax) acetaminophen 300 mg-codeine 15 mg 1 tab PO Q8H PRN pain #20 tabs 05/11/25 tablet lidocaine HCl 2 % mucosal solution 5 ml topical BID PRN pain, 05/11/25 (Lidocaine Viscous) moderate #300 mL nystatin-triamcinolone 100,000 1 applic topical BID #30 grams 05/11/25 unit/gram-0.1 % topical ointment lorazepam 0.5 mg tablet (Ativan) 0.5 mg PO BID PRN anxiety #14 tabs 06/10/25 meclizine 25 mg chewable tablet 25 mg PO BID dizziness #14 tabs 06/10/25 (Antivert) Allergies Allergy/AdvReac Type Severity Reaction Status Date / Time pregabalin (From Lyrica) Allergy Severe Hives Verified 06/10/25 07:55 shellfish derived Allergy Severe Hives Verified 06/10/25 07:55 Review of Systems Review of Systems Systems Reviewed: All systems reviewed, normal except as documented Past Medical History Past Medical History CARDIAC: Positive Hypercholesterolemia and Hypertension GASTROINTESTINAL: Positive Gastrointestinal Disorders, Gall Bladder Disease and Gastroesophageal Reflux Disease MUSCULOSKELETAL: Positive Musculoskeletal Disorders and Arthritis ENT: Positive Cataracts ENDOCRINE: Positive Endocrine Disorders and Diabetes Mellitus Type 2 Family History FAMILY HISTORY: Negative Family Respiratory Disorders, Family Cardiac Disorders or Family Gastrointestinal Problems Social History SMOKING STATUS: Never smoker SUBSTANCE USE: does not use ED Exam General Limitations: Present no limitations General appearance: Present alert and in no apparent distress Head Head exam: Present atraumatic, normocephalic and normal inspection Eye Eye exam: Present PERRL, EOMI and other (There appears to be some edema around his eyes); Absent nystagmus ENT ENT exam: Present normal exam, normal oropharynx and mucous membranes moist Neck Neck exam: Present normal inspection, full ROM and trachea midline Chest Chest inspection: Present normal inspection and symmetric chest wall rise Respiratory Respiratory exam: Present normal lung sounds bilaterally Cardiovascular Cardiovascular exam: Present regular rate, normal rhythm and normal heart sounds Abdominal Exam Abdominal exam: Present soft and normal bowel sounds Extremities Exam Extremities exam: Present normal inspection and full ROM Back Exam Back exam: Present normal inspection and full ROM Neurological Exam Neurological exam: Present alert, oriented X3 and CN II-XII intact Psychiatric Psychiatric exam: Present normal affect and normal mood Skin Skin exam: Present warm, dry, intact and normal color Course Quality Measures none Orders Category Date Time Status Post Anesthesia Room Nurse NOW Care 06/10/25 09:21 Active Continuous Pulse Oximetry NOW Care 06/10/25 09:21 Active EKG (ED ONLY) *Do not use* NOW Care 06/10/25 07:56 Completed Insert IV NOW Care 06/10/25 08:[address] abdomen pelvis wo con Stat Exams 06/10/25 09:[address] head/brain wo con Stat Exams 06/10/25 08:07 Completed EKG (ED Only) Stat Exams 06/10/25 07:55 Draft US gall bladder Stat Exams 06/10/25 12:56 Completed XR chest 1V portable Stat Exams 06/10/25 09:21 Completed B-Type Natriuretic Peptide Stat Lab 06/10/25 08:25 Completed CBC Stat Lab 06/10/25 08:25 Completed Comprehensive Metabolic Panel Stat Lab 06/10/25 08:25 Completed Lipase Stat Lab 06/10/25 08:25 Completed Magnesium Stat Lab 06/10/25 08:25 Completed Partial Thromboplastin Time Stat Lab 06/10/25 08:25 Completed Prothrombin Time with INR Stat Lab 06/10/25 08:25 Completed Troponin I Stat Lab 06/10/25 08:25 Completed Urinalysis, C/S if Indicated Stat Lab 06/10/25 10:56 Completed ALBUTEROL RT 3ml [Proventil Rt 3ml] Med 06/10/25 09:22 Discontinued 2.5 mg INH X1 ONE Acetaminophen Tab [Tylenol Tab] Med 06/10/25 13:04 Discontinued 650 mg PO X1 ONE LORazepam [Ativan Inj] Med 06/10/25 13:04 Discontinued 0.5 mg IVP X1 ONE Meclizine HCl [Antivert] Med 06/10/25 09:22 Discontinued 12.5 mg PO X1 ONE Meclizine HCl [Antivert] Med 06/10/25 12:07 Discontinued 25 mg PO X1 ONE Morphine* Inj Med 06/10/25 12:59 Discontinued 2 mg IVP X1 ONE Ondansetron Inj [Zofran Inj] Med 06/10/25 08:07 Discontinued 4 mg IVP X1 ONE Ondansetron Inj [Zofran Inj] Med 06/10/25 12:07 Discontinued 4 mg IVP X1 ONE Pantoprazole Inj [Protonix Inj] Med 06/10/25 09:23 Discontinued 40 mg IVP X1 ONE Potassium Chloride [K-Dur] Med 06/10/25 13:02 Discontinued 20 meq PO X1 ONE Sodium Chloride 0.9% 1000 ml [Ns] 1,000 ml Med 06/10/25 09:21 Active IV 100 mls/hr Oxygen Delivery NOW RT 06/10/25 09:21 Active Vital Signs Vital signs: Vital Signs Temperature 97.8 F 06/10/25 08:06 Pulse Rate 82 06/10/25 08:06 Respiratory Rate 18 06/10/25 08:06 Blood Pressure 148/69 H 06/10/25 08:06 Pulse Oximetry (%) 97 06/10/25 08:06 Oxygen Delivery Method Room Air 06/10/25 08:06 Pulse ox is 97% on room air which is adequate. Dizziness MDM Narrative MDM Narrative:: Dianelys Trejo am scribing for and in the presence of Dr. Hughes. Patient data External records reviewed:: [facility] previous records Clinical information provided by:: patient and family Social determinants that could affect healthcare access:: none Patient has the following chronic illnesses:: hypertension, diabetes, gastritis, chronic pain How is presenting disease/condition affected by chronic disease/condition?: exacerbated by Evaluation data The following diagnostics were reviewed and interpreted by me:: lab results, radiology exam(s) and EKG tracing(s) (EKG @ 08:02 AM, interpreted by me, sinus rhythm, rate 82, right bundle branch block, no STEMI. ) Lab and/or radiology exams considered but not ordered:: None Interpretation Summary: Ordering Physician: Ashlee ESQUEDA)Ramiro NP Date of Service: 06/10/25 Procedure(s): CT head/brain wo con Accession Number(s): [id number] cc: Ashlee ESQUEDA),Ramiro LUCIO; Gwyn Lugo MD; Leanne Serna PA-C~ Examination: CT brain head without contrast. 2-D sagittal coronal reconstructions Date and time of exam: June 10, 2025, 0856 hours INDICATIONS: Generalized head pain and dizziness beginning 6 days ago CTDI: vol (mGy): 46.1 DLP: (mGycm): 933 Technique: Multiple CT axial sections of the brain have been obtained, 5 mm slice thickness. Contrast has not been administered. 2-D sagittal, coronal reconstructions have been obtained Low dose protocols were performed. One or more of the following dose reduction techniques were used; automated exposure control, adjustment of the mA and/or KV according to patient size, use of iterative reconstruction technique. Findings: No significant ventricular enlargement. Intra-axial or extra-axial hemorrhage density is not seen. No mass effect or midline shift Basal cisterns are not remarkable. Fourth ventricle is midline. Cranial vault intact. Prominent right maxillary sinusitis Impression: Negative for acute hemorrhage, mass effect or midline shift Advise clinical correlation and follow-up accordingly Dictated By: Gwyn Lugo MD Signed By: <Electronically signed by Gwyn Lugo MD in OV> 06/10/25 0910 Ordering Physician: Moshe Hughes MD Date of Service: 06/10/25 Procedure(s): XR chest 1V portable Accession Number(s): [id number] cc: Moshe Hughes MD; Gwyn Lugo MD; Leanne Serna PA-C~ EXAMINATION: AP chest single view TECHNIQUE: AP portable upright chest single view Date and time: June 10, 2025, 10:13 a.m., comparison February 24, 2025 INDICATIONS: Coughing headache dizziness 1 week FINDINGS: Normal heart size Mild to moderate vascular congestion. No lobar pneumonia. No zach pulmonary edema Prominent osteopenia IMPRESSION: Mild to moderate vascular congestion Dictated By: Gwyn Lugo MD Signed By: <Electronically signed by Gwyn Lugo MD in OV> 06/10/25 1031 Ordering Physician: Moshe Hughes MD Date of Service: 06/10/25 Procedure(s): CT abdomen pelvis wo con Accession Number(s): [id number] cc: Moshe Hughes MD; Gwyn Lugo MD; Leanne Serna PA-C~ Examination: CT abdomen and pelvis without contrast. Coronal 3-D reconstructions. Sagittal 2-D reconstructions. Date and time of exam: June 10, 2025, 0923 hours, comparison February 24, 2025 INDICATIONS: Generalized abdominal pain onset today CTDI: vol (mGy): 4.64 DLP: (mGycm): 244 Technique: Axial images of the abdomen have been obtained, 3 mm slice thickness Intravenous contrast material has not been administered. Low dose protocols were performed. One or more of the following dose reduction techniques were used; automated exposure control, adjustment of the mA and/or KV according to patient size, use of iterative reconstruction technique. 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 Dictated By: Gwyn Lugo MD Signed By: <Electronically signed by Gwyn Lugo MD in OV> 06/10/25 1009 Ordering Physician: Moshe Hughes MD Date of Service: 06/10/25 Procedure(s): US gall bladder Accession Number(s): [id number] cc: Moshe Hughes MD; Gwyn Lugo MD; Leanne Serna PA-C~ Examination: Abdomen sonogram, Limited Date and time of exam: June 10, 2025, 1320 hours INDICATIONS: Abdominal pain months Technique: Real-time reynoso scale transabdominal sonographic images of the upper abdomen obtained. Findings: Absent gallbladder Common bile duct 0.70 cm no stones Pancreas obscured by bowel gas Liver 11.3 cm no liver lesions Normal hepatopetal portal venous flow Patent IVC IMPRESSION: Absent gallbladder No common bile duct stones Dictated By: Gwyn Lugo MD Signed By: <Electronically signed by Gwyn Lugo MD in OV> 06/10/25 1511 Medications / Prescriptions Medications or Prescriptions considered but not ordered:: None Medication administrations:: Medication Administration History Sodium Chloride (Ns) 1,000 mls @ 100 mls/hr IV .Q10H ONE Stop: 06/10/25 19:20 Last Admin: 06/10/25 09:47 Dose: 100 mls/hr Documented By: DB Discontinued Medications Acetaminophen (Acetaminophen 325 Mg Tablet) 650 mg PO X1 ONE Stop: 06/10/25 13:05 Last Admin: 06/10/25 13:21 Dose: 650 mg Documented By: DO Albuterol (Albuterol Rt 2.5 Mg/3 Ml Nebu) 2.5 mg INH X1 ONE Stop: 06/10/25 09:23 Last Admin: 06/10/25 09:39 Dose: 2.5 mg Documented By: RG Lorazepam (Lorazepam 2 Mg/Ml Vial) 0.5 mg IVP X1 ONE Stop: 06/10/25 13:05 Last Admin: 06/10/25 13:23 Dose: 0.5 mg Documented By: DO Meclizine HCl (Meclizine Hcl 25 Mg Tablet) 12.5 mg PO X1 ONE Stop: 06/10/25 09:23 Last Admin: 06/10/25 09:48 Dose: 12.5 mg Documented By: DB Meclizine HCl (Meclizine Hcl 25 Mg Tablet) 25 mg PO X1 ONE Stop: 06/10/25 12:08 Last Admin: 06/10/25 12:24 Dose: 25 mg Documented By: DO Morphine Sulfate (Morphine Sulf Inj 4 Mg/Ml Vial) 2 mg IVP X1 ONE Stop: 06/10/25 13:00 Last Admin: 06/10/25 13:22 Dose: 2 mg Documented By: DO Ondansetron HCl (Ondansetron Inj 2 Mg/Ml Inj 2 Ml) 4 mg IVP X1 ONE; Protocol Stop: 06/10/25 08:08 Last Admin: 06/10/25 09:06 Dose: 4 mg Documented By: DO Ondansetron HCl (Ondansetron Inj 2 Mg/Ml Inj 2 Ml) 4 mg IVP X1 ONE; Protocol Stop: 06/10/25 12:08 Last Admin: 06/10/25 12:24 Dose: 4 mg Documented By: DO Pantoprazole Sodium (Pantoprazole Inj 40 Mg Vial) 40 mg IVP X1 ONE Stop: 06/10/25 09:24 Last Admin: 06/10/25 09:47 Dose: 40 mg Documented By: DB Potassium Chloride (Potassium Chloride 20 Meq Tabcr) 20 meq PO X1 ONE Stop: 06/10/25 13:03 Last Admin: 06/10/25 13:20 Dose: 20 meq Documented By: DO See above Consultations Consultation(s) initiated? (list below): No Diagnosis Most likely diagnosis given after review of the tests above:: Headache Anxiety Headache above the eye region Admission Indicated Admission indicated?: not indicated Admission Request Was there a request for admission?: No Disposition Plan Disposition Plan: Discharge Discharge Attestation Discharge Attestation: The patient and all family members were given an opportunity to ask questions and understood the discharge instructions. Discharge instructions specifically effects, indications for sooner follow up or return to the emergency department, and the expected course of current diagnosis. Patient condition: Stable Discharge Plan Plan Patient Disposition: HOME (Self Care) Patient condition on transfer: Stable Prescriptions/Referrals Prescriptions/Med Rec: New lorazepam [Ativan] 0.5 mg tablet 0.5 mg PO BID MDD 2 PRN (Reason: anxiety) Qty: 14 0RF meclizine [Antivert] 25 mg tablet,chewable 25 mg PO BID MDD 2 Qty: 14 0RF No Action fentanyl [Duragesic] 1 PATCH patch 72 hour 1 patch TOP Q72H Qty: 0 cetirizine 10 mg Tablet 10 mg PO QDAY Farxiga 5 mg Tablet 5 mg PO QDAY meclizine 25 mg tablet 25 mg PO BID PRN (Reason: dizziness) Qty: 20 0RF ondansetron 4 mg tablet,disintegrating 4 mg PO TID PRN (Reason: nausea and vomiting) 30 Days Qty: 10 2RF scopolamine base [Transderm-Scop] 1 mg over 3 days patch 3 day 1 mg topical .q72 hours PRN (Reason: dizziness or vertigo) Qty: 4 2RF omeprazole 40 mg capsule,delayed release(DR/EC) 40 mg PO QDAY Qty: 30 0RF famotidine 40 mg tablet 40 mg PO .bedtime Qty: 30 0RF nystatin-triamcinolone 100,000-0.1 unit/gram-% ointment 1 applic topical BID Qty: 30 0RF lidocaine HCl [Lidocaine Viscous] 2 % solution 5 ml topical BID PRN (Reason: pain, moderate) Qty: 300 0RF acetaminophen-codeine 300-15 mg tablet 1 tab PO Q8H MDD 3 TAB PRN (Reason: pain) Qty: 20 0RF benzonatate 200 mg capsule 200 mg PO TID MDD 3 PRN (Reason: Cough) Patient Comments: TAKE 1 CAPSULE BY MOUTH THREE TIMES A DAY NEEDED FOR COUGH amlodipine 2.5 mg tablet 2.5 mg PO QAM Patient Comments: TAKE 1 TABLET BY MOUTH EVERY DAY FOR BLOOD PRESSURE acetaminophen 500 mg tablet 500 mg PO Q6HR PRN (Reason: Pain) omeprazole 40 mg capsule,delayed release(DR/EC) 40 mg PO QDAY Patient Comments: TAKE 1 CAPSULE BY MOUTH EVERY DAY 30 MIN BEFORE MEALS FOR STOMACH sucralfate [Carafate] 100 mg/mL suspension 5 ml PO QID Qty: 414 0RF Rx Instructions: swish in mouth and swallow; use after food/drink acetaminophen [Acetaminophen Pain Relief] 500 mg tablet 500 mg PO Q6H PRN (Reason: fever) Qty: 20 0RF pantoprazole [Protonix] 40 mg tablet,delayed release (DR/EC) 40 mg PO QDAY Qty: 20 0RF polyethylene glycol 3350 [Miralax] 17 gram/dose powder 4 g PO QDAY Qty: 238 0RF Referrals: Leanne Serna PA-C [Primary Care Provider, Family Practice] - In 1 week Problem List Clinical Impression: Headache, Anxiety, Headache above the eye region Patient/Caregiver Discharge Instructions Discharge Activity: activity as tolerated Education Materials: Self-Care for Headaches Additional Instructions: Follow-up with your regular doctor on Saturday. Continue your usual medications. Take Ativan as directed for anxiety. Print Language: Sekou Stand Alone Forms: Leslee Award Info., Patient Portal Info Letter
== END 2025-06-10 16:15 | disposition home or self-care (01) ==
PROVIDERS: Nurse Practitioner Primary Care; Emergency Provider Family Medicine; PCP Physician Assistant
DX: F41.9 Anxiety disorder, unspecified (principal); N28.89 Other specified disorders of kidney and ureter; N40.0 Benign prostatic hyperplasia without lower urinary tract symptoms; K83.8 Other specified diseases of biliary tract; I45.10 Unspecified right bundle-branch block; R09.89 Other specified symptoms and signs involving the circulatory and respiratory systems; R10.84 Generalized abdominal pain; R51.9 Headache, unspecified; R42 Dizziness and giddiness; R11.2 Nausea with vomiting, unspecified
CPT/HCPCS: 36415; 70450; 71045; 74176; 76705; 80053; 81001; 83690; 83735; 83880; 84484; 85025; 85610; 85730; 93005; 94640; 96361; 96374; 96375; 96376; 99285; J2060; J2270; J2405; J2470; J7030; A9270

== ENCOUNTER 2025-06-14 17:35 | Emergency (ER) | payer MEDICARE, MEDICAID, SELFPAY ==
[2025-06-14 17:35] VITALS: BMI 25.0
[2025-06-14 18:45] VITALS: BP 148/69; PULSE 97; RESP 18; TEMP 36.7; O2SAT 97
--- NOTE | 2025-06-14 18:47 | EKG_ITS ---
[facility] Test Date: 2025-06-14 Pat Name: KENDRA CAMPOS Department: Room: - Gender: Male Tunneller: : 1935 Requested By: Karuna Merida Order Number: [id number] Reading MD: Karuna Merida Measurements Intervals [place] Rate: 79 P: 43 CO: 177 QRS: 14 QRSD: 130 T: 31 QT: 404 QTc: 466 Interpretive Statements SINUS RHYTHM RIGHT BUNDLE BRANCH BLOCK [120+ ms QRS DURATION, UPRIGHT V1, 40+ ms S IN I/aVL/V4/V5/V6] Compared to ECG 06/10/2025 08:02:23 Myocardial infarct finding no longer present /store/S0/[id number]/ecg/[id number].pdf
--- NOTE | 2025-06-14 18:48 | PD.EDRME ---
Rapid Medical Screening Exam RME Arrival date/time: 06/14/25 17:35 This is a case of 89 year old female who have hx past medical history of hypertension, diabetes, gastritis, chronic pain came in abdominal pain headache seen 06/10/25 ct scan andutz done normal Chief Complaint: Abdominal Pain Time Seen by Provider: 06/14/25 18:35 Vital signs: Vital Signs Temperature 98.0 F 06/14/25 18:45 Pulse Rate 97 06/14/25 18:45 Respiratory Rate 18 06/14/25 18:45 Blood Pressure 148/69 H 06/14/25 18:45 Pulse Oximetry (%) 97 06/14/25 18:45 Oxygen Delivery Method Room Air 06/14/25 18:45 Exam: abdominal exam mild tenderness epigastric area no quardning no reboumd no rigidity Clinical Impression: abdominal pain
[2025-06-14 19:19] LABS: Basophils # (Auto) 0.0 Thou/mm3 (0.0-0.2); Basophils % (Auto) 0 % (0-2.5); Eosinophils # (Auto) 0.3 Thou/mm3 (0.0-0.5); Eosinophils % (Auto) 4 % (0-10); Hematocrit 37.1 % (41.0-53.0); Hemoglobin 11.8 g/dL (13.5-16.0); Immature Granulocytes Auto 0.03 Thou/mm3 (0.00-0.00); Lymphocytes # (Auto) 2.2 Thou/mm3 (1.0-4.8); Lymphocytes % (Auto) 33 % (10-50); Mean Corpuscular HGB Conc 31.8 g/dl (31.0-37.0); Mean Corpuscular Hemoglobin 28.3 pg (25.0-35.0); Mean Corpuscular Volume 89 fL (80-100); Monocytes # (Auto) 0.6 Thou/mm3 (0.0-0.8); Monocytes % (Auto) 8 % (0-12); Neutrophils # (Auto) 3.7 Thou/mm3 (1.8-7.7); Neutrophils % (Auto) 55 % (37-80); Nucleated Red Blood Cell # 0.00 Thou/mm3 (0.00-0.00); Nucleated Red Blood Cell % 0 /100 WBC (0); Platelet Count 238 Thou/mm3 (140-440); RDW Standard Deviation 49.1 fL (35.1-43.9); Red Blood Count 4.17 Miln/mm3 (4.50-5.90); White Blood Count 6.8 Thou/mm3 (3.8-10.6)
[2025-06-14 19:35] LABS: Collection Type, Urine Clean Catch
[2025-06-14 19:37] LABS: B-Type Natriuretic Peptide 110 pg/mL (0-100)
[2025-06-14 19:39] LABS: Alanine Aminotransferase 8 U/L (10-49); Albumin, Serum 4.1 gm/dL (3.4-4.8); Albumin/Globulin Ratio 1.0 (1.2-2.2); Alkaline Phosphatase 93 U/L (46-116); Anion Gap 7 (7-16); Aspartate Amino Transferase 21 U/L (0-34); BUN/Creatinine Ratio 7 Ratio (12-20); Bilirubin,Total 0.2 mg/dL (0.3-1.2); Blood Urea Nitrogen 7 mg/dL (9-23); Calcium 9.3 mg/dL (8.3-10.6); Calcium (Corrected) 9.3 mg/dL (8.5-10.1); Carbon Dioxide 31.6 mMol/L (20.0-31.0); Chloride 102 mMol/L (98-107); Creatinine (Component) 1.0 mg/dL (0.6-1.3); Estimated Creatinine Clearance 36.8 mL/min (>60); Globulin 4.1 gm/dL (2.3-3.5); Glucose 216 mg/dL (74-106); Lipase 22 U/L (12-53); Osmolality,Calculated 286 (275-295); Potassium 4.3 mMol/L (3.4-5.1); Sodium 141 mMol/L (136-145); Total Protein 8.2 gm/dL (5.7-8.2); Troponin I < 0.020 ng/mL (0.0-0.045); eGFR > 60 See Note
[2025-06-14 19:40] LABS: Bilirubin,Urine Negative (Negative); Blood,Urine Negative (Negative); Clarity,Urine Clear (Clear/Hazy); Color,Urine Colorless (Lt Yel-Yel); Glucose, Urine Negative (Negative); Ketones,Urine Negative (Negative); Leukocyte Esterase,Urine Positive (Negative); Nitrite,Urine Negative (Negative); PH,Urine 8.0 (5.0-7.0); Protein,Urine Negative (Neg - Trace); RBC,Urine 1 /hpf (0-3); Specific Gravity,Urine 1.007 (1.001-1.035); Squamous Epithelial Cell,Urine 1 /hpf (0-5); Urobilinogen,Urine Negative mg/dL (0.0-1.0); WBC,Urine 1 /hpf (0-5)
[2025-06-14] MEDS: ACETAMINOPHEN 325 MG TABLET 650 MG PO (21:48)
[2025-06-14] MEDS: MG HYD/AL HYD/SIME (Maalox Reg) SUSP 30 ML UDC PO (22:15)
[2025-06-14] MEDS: LIDOCAINE VISCOUS 2% 15 ML UDC PO (22:15)
--- NOTE | 2025-06-14 22:42 | PC.NURSE ---
SEEN LEAVING IN A CAR.
== END 2025-06-14 22:42 | disposition left against medical advice (07) ==
PROVIDERS: Nurse Practitioner Family; Emergency Provider Emergency Medicine; PCP Physician Assistant
DX: R10.9 Unspecified abdominal pain (principal); R51.9 Headache, unspecified; Z53.29 Procedure and treatment not carried out because of patient's decision for other reasons
CPT/HCPCS: 36415; 80053; 81001; 83690; 83880; 84484; 85025; 93005; 99282; J3490; A9270